=== PATIENT | female | born 1930 | race Caucasian/White ===

== ENCOUNTER 2017-01-15 21:02 | Inpatient (IN) | payer BC, MEDICARE ==
[~2017-01-15] VITALS: Ht 162.6 cm; Wt 72.6 kg
[2017-01-15 21:10] VITALS: BP 102/66
--- NOTE | 2017-01-15 21:19 | Emergency Room Report ---
History of Present Illness General Chief Complaint: Abnormal Labs Source: Patient, EMS Present Illness HPI Patient is an 86-year-old female who presented after having increased altered mental status. Patient had prior history of type 2 diabetes. She had been taking Januvia as well as another oral hypoglycemic. The patient was noted to have a blood sugar in the 40s by EMS. She was given some D50 with some improvement in her mental status. Per the patient's she had recently had shoulder surgery on her left shoulder. She had not been needing well. Allergies: Coded Allergies: No Known Allergies (Unverified , 01/15/17) Patient History Now: No Reviewed Nursing Documentation: PMH: Agreed, PSxH: Agreed Nursing Documentation-PMH Past Medical History: No History, Except For Hx Diabetes: Yes Review of Systems All Other Systems: negative except mentioned in HPI Physical Exam Vital Signs Date Time Temp Pulse Resp B/P Pulse Ox O2 Delivery O2 Flow Rate FiO2 01/15/17 21:00 100 21 108/68 97 Room Air Sp02 EP Interpretation: reviewed, normal General Appearance: normal inspection, well appearing, no apparent distress, alert, GCS 15 Head: atraumatic ENT: normal ENT inspection, hearing grossly normal, normal voice Neck: normal inspection, full range of motion, supple, no bony tend Respiratory: normal inspection, lungs clear, normal breath sounds, no respiratory distress, no retraction, no wheezing Cardiovascular #1: regular rate, rhythm, no edema Gastrointestinal: normal inspection, normal bowel sounds, non tender, soft, no guarding, no hernia Genitourinary: no CVA tenderness Musculoskeletal: normal inspection, back normal, normal range of motion Neurologic: normal inspection, alert, oriented x3, responsive, 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, speech normal Psychiatric: normal inspection, judgement/insight normal, mood/affect normal Skin: normal inspection, normal color, no rash Medical Decision Making Diagnostic Impression: Primary Impression: Hypoglycemia Additional Impression: S/P shoulder surgery ER Course Patient presented for altered mental status.Differential diagnosis included but was not limited to ischemic stroke, subarachnoid hemorrhage, hypoglycemia, spinal cord injury, neurodegenerative disorder, urinary tract infection, hypoxemia.Because of complexity of patient's case laboratory testing and imaging studies were ordered. The patient was noted to have evidence of hypoglycemia which is probably due to dietary indiscretion. Patient's surgical wounds appear not to be infected. Patient was noted to have a blood sugar greater than 180. The patient was given by mouth orange juice.The patient was noted to have hypoglycemia and laboratory testing showed evidence of hyperkalemia. Patient noted to have some renal insufficiency which per her primary care physician is worse than baseline. The patient was reportedly had a creatinine approximately 1.6. The patient noted be taking long-acting oral hypoglycemics. Dr. Acevedo was contacted for inpatient management. Labs Test 01/15/17 21:11 01/15/17 22:02 White Blood Count 11.7 K/UL (4.8-10.8) Red Blood Count 3.24 M/UL (4.20-5.40) Hemoglobin 9.3 G/DL (12.0-16.0) Hematocrit 29.4 % (37.0-47.0) Mean Corpuscular Volume 91 FL (80-99) Mean Corpuscular Hemoglobin 28.7 PG (27.0-31.0) Mean Corpuscular Hemoglobin Concent 31.7 G/DL (32.0-36.0) Red Cell Distribution Width 14.6 % (11.6-14.8) Platelet Count 357 K/UL (150-450) Mean Platelet Volume 5.5 FL (6.5-10.1) Neutrophils (%) (Auto) 85.5 % (45.0-75.0) Lymphocytes (%) (Auto) 8.6 % (20.0-45.0) Monocytes (%) (Auto) 4.9 % (1.0-10.0) Eosinophils (%) (Auto) 0.5 % (0.0-3.0) Basophils (%) (Auto) 0.5 % (0.0-2.0) Sodium Level 138 mEQ/L (135-145) Potassium Level 7.0 mEQ/L (3.4-4.9) Chloride Level 103 mEQ/L (98-107) Carbon Dioxide Level 16 mEQ/L (20-30) Anion Gap 19 (5-15) Blood Urea Nitrogen 65 mg/dL (7-23) Creatinine 3.7 mg/dL (0.5-0.9) Estimat Glomerular Filtration Rate mL/min (>60) Glucose Level 175 mg/dL (74-106) Lactic Acid Level 0.90 mmol/L (0.66-2.22) Calcium Level 9.1 mg/dL (8.6-10.2) Total Bilirubin 0.3 mg/dL (0.0-1.2) Aspartate Amino Transf (AST/SGOT) 36 U/L (5-40) Alanine Aminotransferase (ALT/SGPT) 48 U/L (3-33) Alkaline Phosphatase 69 U/L (35-104) Total Creatine Kinase 75 U/L (26-140) Creatine Kinase MB 3.2 ng/mL (< 3.8) Creatine Kinase MB Relative Index 4.2 Troponin I < 0.30 ng/mL (<=0.30) Total Protein 6.9 g/dL (6.6-8.7) Albumin 4.0 g/dL (3.5-5.2) Globulin 2.9 g/dL Albumin/Globulin Ratio 1.3 (1.0-2.7) Urine Color Pale yellow Urine Appearance Clear Urine pH 5 (4.5-8.0) Urine Specific [place] 1.015 (1.005-1.035) Urine Protein 1+ (NEGATIVE) Urine Glucose (UA) Negative (NEGATIVE) Urine Ketones Negative (NEGATIVE) Urine Occult Blood Negative (NEGATIVE) Urine Nitrite Negative (NEGATIVE) Urine Bilirubin Negative (NEGATIVE) Urine Urobilinogen Normal MG/DL (0.0-1.0) Urine Leukocyte Esterase 2+ (NEGATIVE) Urine RBC 0-2 /HPF (0 - 2) Urine WBC 5-10 /HPF (0 - 2) Urine Squamous Epithelial Cells Few /LPF (NONE/OCC) Urine Bacteria Few /HPF (NONE) EKG Diagnostic Results Rate: normal Rhythm: NSR ST Segments: no acute changes Chest X-Ray Diagnostic Results EP Interpretation: Yes Findings: no consolidation, no effusion, no pneumothorax, no acute cardiopulmonary disease Number of Views: 1 Last Vital Signs Date Time Temp Pulse Resp B/P Pulse Ox O2 Delivery O2 Flow Rate FiO2 01/15/17 21:00 100 21 108/68 97 Room Air Status: unchanged Disposition: ADMITTED INPATIENT Condition: Serious Saman Wei Jan 15, 2017 21:19
[2017-01-15] MEDS: D5 1/2NS 1,000 ML IV SCH ×2 (21:42→21:44)
[2017-01-15 21:46] LABS: MEAN CORPUSCULAR HEMOGLOBIN 28.7 PG (27.0-31.0); MEAN CORPUSCULAR HGB CONC 31.7 G/DL (32.0-36.0); MEAN CORPUSCULAR VOLUME 91 FL (80-99); MEAN PLATELET VOLUME 5.5 FL (6.5-10.1); PLATELET COUNT 357 K/UL (150-450); RED BLOOD COUNT 3.24 M/UL (4.20-5.40); RED CELL DISTRIBUTION WIDTH 14.6 % (11.6-14.8); WHITE BLOOD COUNT 11.7 K/UL (4.8-10.8)
[2017-01-15 21:50] LABS: BASOPHILS % (AUTO) 0.5 % (0.0-2.0); EOSINOPHILS % (AUTO) 0.5 % (0.0-3.0); LYMPHOCYTES % (AUTO) 8.6 % (20.0-45.0); MONOCYTES % (AUTO) 4.9 % (1.0-10.0); NEUTROPHILS % (AUTO) 85.5 % (45.0-75.0)
[2017-01-15 21:57] LABS: ALANINE AMINOTRANSFERASE 48 U/L (3-33); ALBUMIN/GLOBULIN RATIO 1.3 (1.0-2.7); ANION GAP 19 (5-15); ASPARTATE AMINO TRANSFERASE 36 U/L (5-40); CALCIUM 9.1 mg/dL (8.6-10.2); CARBON DIOXIDE 16 mEQ/L (20-30); CHLORIDE 103 mEQ/L (98-107); CREATININE 3.7 mg/dL (0.5-0.9); HEMOLYSIS 5; SODIUM 138 mEQ/L (135-145); TOTAL PROTEIN 6.9 g/dL (6.6-8.7)
[2017-01-15 21:58] LABS: TROPONIN I < 0.30 ng/mL (<=0.30)
[2017-01-15] MEDS ORDERED: cefTRIAXone 1 GM in NS 55 ML IVPB ONE (22:00)
[2017-01-15 22:15] LABS: APPEARANCE,URINE CLEAR; KETONES,URINE NEGATIVE (NEGATIVE); LEUKOCYTE ESTERASE ,URINE 2+ (NEGATIVE); NITRITE,URINE NEGATIVE (NEGATIVE); PH,URINE 5 (4.5-8.0); PROTEIN,URINE 1+ (NEGATIVE); UROBILINOGEN,URINE NORMAL MG/DL (0.0-1.0)
[2017-01-15] MEDS ORDERED: Calcium Gluconate 10% 1 GM in NS 110 ML IVPB ONE (22:15)
[2017-01-15 22:17] LABS: CKMB 3.2 ng/mL (< 3.8)
[2017-01-15] MEDS ORDERED: Calcium Gluconate 1gm/10ml vial ONE (22:22)
[2017-01-15 22:29] LABS: BACTERIA,URINE FEW /HPF; RBC,URINE 0-2 /HPF (0 - 2); SQUAMOUS EPITHELIAL CELL,UR FEW /LPF (NONE/OCC)
[2017-01-15] MEDS ORDERED: Sodium Polystyrene Sulfonate 15gm Powder ORAL ONE (22:30)
[2017-01-15] MEDS ORDERED: Sodium Bicarbonate 8.4% 50ml Carp IV ONE (22:30)
[2017-01-15] MEDS ORDERED: DuoNeb 0.5-3(2.5)mg/3ml neb HHN PRN (23:15)
[2017-01-15] MEDS ORDERED: Miralax 17gm pkt ORAL PRN (23:15)
[2017-01-15] MEDS ORDERED: Morphine Sulfate 2mg/ml Inj IVP PRN (23:15)
[2017-01-15] MEDS ORDERED: Zolpidem 5mg tab ORAL PRN (23:15)
[2017-01-15] MEDS ORDERED: Mylanta II UD 30ml ORAL PRN (23:15)
[2017-01-15 23:18] VITALS: BP 108/45
[2017-01-16] VITALS (7 sets, daily range): BP systolic 104–137; BP diastolic 50–81
[2017-01-16] MEDS ORDERED: LIPITOR80 MG ORAL (00:10)
[2017-01-16] MEDS ORDERED: NORVASC5 MG ORAL (00:10)
[2017-01-16] MEDS ORDERED: LISINOPRIL5 MG ORAL (00:10)
[2017-01-16] MEDS ORDERED: JANUVIA50 MG ORAL (00:10)
[2017-01-16] MEDS ORDERED: IRON159 MG PO (00:10)
[2017-01-16] MEDS ORDERED: MULTI VITAMIN1 EACH ORAL (00:10)
[2017-01-16] MEDS ORDERED: REPAGLINIDE1 MG PO (00:10)
[2017-01-16] MEDS ORDERED: LEXAPRO5 MG ORAL (00:10)
[2017-01-16] MEDS ORDERED: NAMENDA10 MG ORAL (00:10)
[2017-01-16] MEDS ORDERED: TYLENOL650 MG/20. ORAL (00:10)
[2017-01-16] MEDS ORDERED: GABAPENTIN300 MG ORAL (00:10)
[2017-01-16] MEDS ORDERED: TYLENOL EXTRA500 MG ORAL (03:34)
[2017-01-16] MEDS ORDERED: FERROUS SULFAT325 MG ORAL (03:34)
[2017-01-16] MEDS ORDERED: JANUVIA100 MG ORAL (03:34)
[2017-01-16 05:58] LABS: BASOPHILS % (AUTO) 0.8 % (0.0-2.0); EOSINOPHILS % (AUTO) 1.2 % (0.0-3.0); LYMPHOCYTES % (AUTO) 20.9 % (20.0-45.0); MEAN CORPUSCULAR HEMOGLOBIN 28.8 PG (27.0-31.0); MEAN CORPUSCULAR HGB CONC 32.1 G/DL (32.0-36.0); MEAN CORPUSCULAR VOLUME 90 FL (80-99); MEAN PLATELET VOLUME 5.8 FL (6.5-10.1); MONOCYTES % (AUTO) 6.6 % (1.0-10.0); NEUTROPHILS % (AUTO) 70.5 % (45.0-75.0); PLATELET COUNT 321 K/UL (150-450); WHITE BLOOD COUNT 9.7 K/UL (4.8-10.8)
[2017-01-16 06:08] LABS: ALANINE AMINOTRANSFERASE 36 U/L (3-33); ALBUMIN/GLOBULIN RATIO 0.9 (1.0-2.7); ANION GAP 18 (5-15); ASPARTATE AMINO TRANSFERASE 25 U/L (5-40); CALCIUM 8.4 mg/dL (8.6-10.2); CARBON DIOXIDE 16 mEQ/L (20-30); CHLORIDE 103 mEQ/L (98-107); CHOLESTEROL 104 mg/dL (< 200); CHOLESTEROL/HDL RATIO 2.1 (3.3-4.4); CREATININE 3.1 mg/dL (0.5-0.9); HEMOLYSIS 1; LDL CHOLESTEROL (CALC.) 43 mg/dL (60-99); SODIUM 137 mEQ/L (135-145); TOTAL PROTEIN 6.1 g/dL (6.6-8.7)
[2017-01-16 06:21] LABS: THYROID STIMULATING HORMONE 0.345 uIU/mL (0.300-4.500)
[2017-01-16] MEDS: NovoLOG Insulin Flexpen SUBQ SCH ×4 (06:53→21:02)
[2017-01-16] MEDS: Sodium Polystyrene Sulfonate 15gm Powder ORAL SCH (08:25)
[2017-01-16] MEDS: Heparin 5000 units/ml inj SUBQ SCH ×2 (08:27→21:03)
[2017-01-16] MEDS ORDERED: Pneumococcal Vaccine 25mcg/0.5ml IM ONE (09:00)
--- NOTE | 2017-01-16 09:52 | Diagnostic Imaging Report ---
Clinical history: Acute shortness of breath. Technique: Portable AP chest radiograph was obtained. Comparison: None Findings: Mild scattered reticular and interstitial opacities may reflect mild interstitial edema or scattered changes of chronic lung disease. No focal consolidation is identified. There is no pneumonia or pulmonary edema. There is no pleural effusion or pneumothorax. The cardiac and mediastinal silhouettes are normal in appearance. The bony thorax is unremarkable. Impression: Suspected mild interstitial edema or scattered changes of chronic lung disease.
--- NOTE | 2017-01-16 10:20 | History and Physical ---
History of Present Illness General Date patient seen: Jan 16, 2018 Time patient seen: 10:00 Reason for Hospitalization: Abnormal Labs Present Illness HPI 86-year-old female presented after having altered mental status. Patient with history of type 2 diabetes. She had been taking Januvia as well as another oral hypoglycemic medications. By EMS blood sugar in the 40s by EMS. patient was given D50 with some improvement in mental status. recent shoulder surgery and was not eating well as per denies fever, chills no blackouts, no falls, no dizziness no chest pain, no SOB, no palpitations no trauma, injury Workup in ED revealed BS 175 mild leukocytosis-11.7 anemia -9.3/29.4 hyperkalemia K-7.0 acute renal failure with BUN/creat-65/3.7 CXR with mild interstitial edema ECG - SR CXR no acute changes patient was admitted to tele floor for further management PMH: HTN, hyperlipidemia, DM, arrhythmia, s/p R hip surgery, s/p L shoulder surgery Allergies: Coded Allergies: No Known Allergies (Unverified , 01/15/17) Medication History Scheduled Amlodipine Besylate (Norvasc), 5 MG ORAL DAILY, (Reported) Atorvastatin (Lipitor), 40 MG ORAL DAILY, (Reported) Escitalopram Oxalate (Lexapro), 20 MG ORAL DAILY, (Reported) Ferrous Sulfate* (Ferrous Sulfate*), 325 MG ORAL DAILY, (Reported) Gabapentin* (Gabapentin*), 200 MG ORAL BEDTIME, (Reported) Lisinopril (Lisinopril*), 10 MG ORAL DAILY, (Reported) Memantine Hcl* (Namenda*), 28 MG ORAL DAILY, (Reported) Multivitamin (Multi Vitamin Daily), 1 TAB ORAL DAILY, (Reported) Repaglinide (Repaglinide), 1 MG PO BID, (Reported) Sitagliptin (Januvia), 100 MG ORAL DAILY, (Reported) Scheduled PRN Acetaminophen* (Tylenol Extra Strength*), 500 MG ORAL Q8H PRN for For Pain, ( Reported) Discontinued Medications Acetaminophen (Acetaminophen), Unknown Dose ORAL Q6H PRN for Prn Headache/Temp > 101, (Reported) Discontinued Reason: Medication dose changed Ferrous Sulfate, Dried (Iron), 65 MG PO, (Reported) Discontinued Reason: Medication dose changed Sitagliptin (Januvia), 50 MG ORAL DAILY, (Reported) Discontinued Reason: Medication dose changed Patient History Healthcare decision maker Resuscitation status Full Code Advanced Directive on File Review of Systems Constitutional: Reports: malaise, weakness Eye: Reports: no symptoms ENT: Reports: no symptoms Respiratory: Reports: no symptoms Cardiovascular: Reports: other - HTN Gastrointestinal: Reports: constipation Genitourinary: Reports: no symptoms Musculoskeletal: Reports: joint pain, other - R hip surgery, L shoulder surgery Skin: Reports: no symptoms Psychiatric: Reports: other - depression, dementia Neurological: Reports: no symptoms Endocrine: Reports: other - DM, see HPI Hematologic/Lymphatic: Reports: no symptoms Physical Exam General Appearance: alert - responsive, forgetful,elderly female in NAD Lines, tubes and drains: peripheral HEENT: normocephalic, atraumatic, anicteric, mucous membranes moist, PERRL Neck: non-tender, normal alignment, supple Respiratory/Chest: lungs clear, no respiratory distress, no accessory muscle use Cardiovascular/Chest: normal peripheral pulses, no JVD, other - irregualr, tachy-maximiliano Abdomen: normal bowel sounds, non tender, soft Extremities: normal inspection, no calf tenderness, normal capillary refill Skin Exam: warm/dry Neurologic: no motor/sensory deficits, alert - forgetful, responsive Musculoskeletal: atrophy - BLE Last 24 Hour Vital Signs Date Time Temp Pulse Resp B/P Pulse Ox O2 Delivery O2 Flow Rate FiO2 01/16/17 08:00 97.0 46 16 112/50 96 Room Air 01/16/17 04:30 98.2 139 20 137/81 96 Room Air 2.0 01/16/17 04:00 100 01/16/17 02:43 97.0 114 20 114/67 96 Room Air 01/16/17 02:02 97.5 99 15 104/62 96 Room Air 01/16/17 01:45 97.5 99 15 104/62 96 Room Air 01/16/17 00:38 97.5 01/15/17 23:18 97.5 95 19 108/45 100 Room Air 01/15/17 21:10 73 17 102/66 97 Room Air 01/15/17 21:00 100 21 108/68 97 Room Air Intake and Output 01/15/17 01/16/17 19:00 07:00 Intake Total 1350 ml Balance 1350 ml IV Total 1350 ml # Voids 3 Laboratory Tests Test 01/15/17 21:11 01/15/17 22:02 01/16/17 05:30 White Blood Count 11.7 K/UL (4.8-10.8) H 9.7 K/UL (4.8-10.8) Red Blood Count 3.24 M/UL (4.20-5.40) L 2.80 M/UL (4.20-5.40) L Hemoglobin 9.3 G/DL (12.0-16.0) L 8.1 G/DL (12.0-16.0) L Hematocrit 29.4 % (37.0-47.0) L 25.1 % (37.0-47.0) L Mean Corpuscular Volume 91 FL (80-99) 90 FL (80-99) Mean Corpuscular Hemoglobin 28.7 PG (27.0-31.0) 28.8 PG (27.0-31.0) Mean Corpuscular Hemoglobin Concent 31.7 G/DL (32.0-36.0) L 32.1 G/DL (32.0-36.0) Red Cell Distribution Width 14.6 % (11.6-14.8) 14.0 % (11.6-14.8) Platelet Count 357 K/UL (150-450) 321 K/UL (150-450) Mean Platelet Volume 5.5 FL (6.5-10.1) L 5.8 FL (6.5-10.1) L Neutrophils (%) (Auto) 85.5 % (45.0-75.0) H 70.5 % (45.0-75.0) Lymphocytes (%) (Auto) 8.6 % (20.0-45.0) L 20.9 % (20.0-45.0) Monocytes (%) (Auto) 4.9 % (1.0-10.0) 6.6 % (1.0-10.0) Eosinophils (%) (Auto) 0.5 % (0.0-3.0) 1.2 % (0.0-3.0) Basophils (%) (Auto) 0.5 % (0.0-2.0) 0.8 % (0.0-2.0) Sodium Level 138 mEQ/L (135-145) 137 mEQ/L (135-145) Potassium Level 7.0 mEQ/L (3.4-4.9) *H 6.0 mEQ/L (3.4-4.9) *H Chloride Level 103 mEQ/L (98-107) 103 mEQ/L (98-107) Carbon Dioxide Level 16 mEQ/L (20-30) L 16 mEQ/L (20-30) L Anion Gap 19 (5-15) H 18 (5-15) H Blood Urea Nitrogen 65 mg/dL (7-23) H 57 mg/dL (7-23) H Creatinine 3.7 mg/dL (0.5-0.9) H 3.1 mg/dL (0.5-0.9) H Estimat Glomerular Filtration Rate mL/min (>60) mL/min (>60) Glucose Level 175 mg/dL (74-106) H 184 mg/dL (74-106) H Lactic Acid Level 0.90 mmol/L (0.66-2.22) Calcium Level 9.1 mg/dL (8.6-10.2) 8.4 mg/dL (8.6-10.2) L Total Bilirubin 0.3 mg/dL (0.0-1.2) 0.3 mg/dL (0.0-1.2) Aspartate Amino Transf (AST/SGOT) 36 U/L (5-40) 25 U/L (5-40) Alanine Aminotransferase (ALT/SGPT) 48 U/L (3-33) H 36 U/L (3-33) H Alkaline Phosphatase 69 U/L (35-104) 58 U/L (35-104) Total Creatine Kinase 75 U/L (26-140) Creatine Kinase MB 3.2 ng/mL (< 3.8) Creatine Kinase MB Relative Index 4.2 Troponin I < 0.30 ng/mL (<=0.30) Total Protein 6.9 g/dL (6.6-8.7) 6.1 g/dL (6.6-8.7) L Albumin 4.0 g/dL (3.5-5.2) 3.0 g/dL (3.5-5.2) L Globulin 2.9 g/dL 3.1 g/dL Albumin/Globulin Ratio 1.3 (1.0-2.7) 0.9 (1.0-2.7) L Urine Color Pale yellow Urine Appearance Clear Urine pH 5 (4.5-8.0) Urine Specific [place] 1.015 (1.005-1.035) Urine Protein 1+ (NEGATIVE) H Urine Glucose (UA) Negative (NEGATIVE) Urine Ketones Negative (NEGATIVE) Urine Occult Blood Negative (NEGATIVE) Urine Nitrite Negative (NEGATIVE) Urine Bilirubin Negative (NEGATIVE) Urine Urobilinogen Normal MG/DL (0.0-1.0) Urine Leukocyte Esterase 2+ (NEGATIVE) H Urine RBC 0-2 /HPF (0 - 2) Urine WBC 5-10 /HPF (0 - 2) H Urine Squamous Epithelial Cells Few /LPF (NONE/OCC) Urine Bacteria Few /HPF (NONE) Hemoglobin A1c 6.0 % (< 6.0) Triglycerides Level 57 mg/dL (< 150) Cholesterol Level 104 mg/dL (< 200) LDL Cholesterol 43 mg/dL (60-99) L HDL Cholesterol 50 mg/dL (> 60) Cholesterol/HDL Ratio 2.1 (3.3-4.4) L Thyroid Stimulating Hormone (TSH) 0.345 uIU/mL (0.300-4.500) Height (Feet): 5 Height (Inches): 4.00 Weight (Pounds): 160 Medications Current Medications Medications (Trade) Dose Ordered Sig/Leydi Route PRN Reason Start Time Stop Time Status Last Admin Dose Admin Acetaminophen (Tylenol) 650 mg Q4H PRN ORAL fever 01/15/17 23:15 02/14/17 23:14 Al Hydroxide/Mg Hydroxide (Mylanta II) 30 ml Q6H PRN ORAL dyspepsia 01/15/17 23:15 02/14/17 23:14 Albuterol/ Ipratropium (DuoNeb 0.5-3(2.5)mg/3ml) 3 ml Q6HRT PRN HHN dyspnea 01/15/17 23:15 01/20/17 23:14 Clonidine HCl (Catapres) 0.1 mg Q4H PRN ORAL For High Blood Pressure 01/15/17 23:15 02/14/17 23:14 Dextrose (Dextrose 50%) STAT PRN IV Hypoglycemia 01/15/17 23:15 02/14/17 23:14 Heparin Sodium (Porcine) (Heparin 5000 units/ml) 5,000 units EVERY 12 HOURS SUBQ 01/16/17 09:00 02/15/17 08:59 01/16/17 08:27 Insulin Aspart (NovoLOG) BEFORE MEALS AND HS SUBQ 01/16/17 06:30 02/15/17 06:29 01/16/17 06:53 Morphine Sulfate (Morphine Sulfate) 1 mg EVERY 4 HOURS PRN IVP For Pain 01/15/17 23:15 01/22/17 23:14 Ondansetron HCl (Zofran) 4 mg Q6H PRN IVP Nausea & Vomiting 01/15/17 23:15 02/14/17 23:14 Polyethylene Glycol (Miralax) 17 gm HSPRN PRN ORAL Constipation 01/15/17 23:15 02/14/17 23:14 01/16/17 08:25 Sodium Polystyrene Sulfonate 45 gm 45 gm DAILY ORAL 01/16/17 09:00 01/19/17 08:59 01/16/17 08:25 Sodium Chloride (Sodium Chloride 1000ml bag) 1,000 ml @ 100 mls/hr Q10H IV 01/16/17 10:00 02/15/17 09:59 01/16/17 10:09 Zolpidem Tartrate (Ambien) 5 mg HSPRN PRN ORAL Insomnia 01/15/17 23:15 02/14/17 23:14 Assessment/Plan Assessment/Plan ASSESSMENT acute metabolic encephalopathy liekly 2 to hypoglycemia -resolved episode of hypoglycemia DM acute renal failreu, possibly on chronic ( ? diabetic nephropathy) hyperkalemia anemia hx of HTN dementia tachybrady syndrome PLAN OF CARE tele nephro consult IVF monitor renal parameters, lytes ARF possibly precipitated by medications as well as dehydration check renal US continue Kayexalate need to be on tele until K stable, no peaked T wave on tele strip avoid nephrotoxic BS management with SS of insulin check HgA1c MRI brain anemia workup O2 HHN prn PT/OT fall precautions DVT prophylaxis pain management monitor BP , currently stable, no need for antiHTN, cardio eval - per PMD discretion case discussed and evaluated by supervising physician Kirk Ayala),Criss BADILLO Jan 16, 2017 10:19
--- NOTE | 2017-01-16 12:38 | History & Physical ---
History and Physical History & Physicial Dictated for Int Med-Dr Acevedo no. [id number] BILLY GALEAS Jan 16, 2017 12:38
--- NOTE | 2017-01-16 13:08 | Consultation ---
Consult Note Consult Note asked to eval for renal failure and hyperKalemia Patient is an 86-year-old female who presented after having increased altered mental status. Patient had prior history of type 2 diabetes. She had been taking Januvia as well as another oral hypoglycemic. The patient was noted to have a blood sugar in the 40s by EMS. She was given some D50 with some improvement in her mental status. Per the patient's she had recently had shoulder surgery on her left shoulder. She had not been needing well. Patient examined- interviewed- Data reviewed- Discussed with RN . Assessment/Plan status: Renal Failure ? Acute ? Underlying chronic Diabetic Nephropathy- Anemia High Cholestrol Depression / Dementia Plan: Hydrate- Khan- urine studies- Avoid Nephrotoxics- mobnitor BS and BP Kidney FLORENCIA 2D Echo Kayexelate for high K CHARLEY SARKAR Jan 16, 2017 13:08
[2017-01-16 16:22] LABS: ANION GAP 18 (5-15); CARBON DIOXIDE 17 mEQ/L (20-30); CHLORIDE 107 mEQ/L (98-107); CREATININE 2.9 mg/dL (0.5-0.9); HEMOLYSIS 2; POTASSIUM 5.7 mEQ/L (3.4-4.9); SODIUM 142 mEQ/L (135-145)
--- NOTE | 2017-01-16 19:39 | History and Physical Report ---
DATE OF ADMISSION: 01/15/2017 CHIEF COMPLAINT: This is an 86-year-old white female, presents with complaint of vertigo and altered mental status. HISTORY OF PRESENT ILLNESS: The patient lives at home with her . The patient is somewhat confused. Much of the history and physical is obtained from the patient's and the patient's chart. The patient states she fainted early this morning. The patient's became concerned and called 911. The patient's blood sugar was found to be 48 by EMS. The patient was transported to [place] emergency room. The patient was admitted for hypoglycemia, vertigo, and altered mental status. PAST MEDICAL HISTORY: Significant for, 1. Type 2 diabetes. 2. Hypertension. 3. Alzheimer's dementia. 4. Major depression. PAST SURGICAL HISTORY: Significant for recent left shoulder surgery. CURRENT MEDICATIONS: 1. Norvasc 5 mg one tablet p.o. daily. 2. Atorvastatin 80 mg one tablet p.o. daily. 3. Lexapro 20 mg one tablet p.o. daily. 4. Iron sulfate 325 mg one tablet p.o. daily. 5. Gabapentin 300 mg one tablet p.o. at nightly. 6. Lisinopril 10 mg one tablet p.o. daily. 7. Namenda 28 mg p.o. daily. 8. Multivitamin one tablet p.o. daily. 9. Repaglinide 1 mg one tablet p.o. twice daily. 10. Januvia 100 mg one tablet p.o. daily. ALLERGIES: No known drug allergies. SOCIAL HISTORY: The patient is and lives with her . The patient denies tobacco or alcohol use. REVIEW OF SYSTEMS: Constitutional: The patient denies weight loss or weight gain. The patient denies fevers or chills. HEENT: The patient denies ear or throat pain. Cardiovascular: The patient denies palpitations or chest pain. Chest: The patient denies wheezes or shortness of breath. Abdomen: The patient denies nausea, vomiting, diarrhea, or constipation Genitourinary: The patient denies dysuria or increased frequency of urination. Neuromuscular: The patient complains of vertigo as above. The patient denies seizures or generalized weakness. PHYSICAL EXAMINATION: VITAL SIGNS: Temperature 97.5 degrees, respirations 15, pulse 99, AND blood pressure 104/62. GENERAL: The patient is well-developed and well-nourished white female, in no apparent distress. HEENT: Eyes, pupils are equal and responsive to light and accommodation. Extraocular movements are intact. NECK: Supple without lymphadenopathy. CHEST: Lungs are clear to auscultation bilaterally without wheezes or rales. CARDIOVASCULAR: Regular rhythm and rate. S1 and S2 normal without murmurs, rubs, or gallops. ABDOMEN: Soft, nontender, and nondistended. Positive bowel sounds. No evidence of hepatosplenomegaly. Currently, no rebound or guarding. EXTREMITIES: Negative for clubbing, cyanosis, or edema. RECTAL: Refused. GENITAL: Refused. NEUROLOGIC: Cranial nerves II through XII are grossly intact without focal deficits. Motor strength is 5/5 bilaterally. Deep tendon reflexes are 2+ plantar. LABORATORY STUDIES: WBC 11.7, hemoglobin 9.3, hematocrit 29.4, and platelets 357,000. Sodium 138, potassium elevated at 7.0, chloride 103, CO2 16, BUN 65, creatinine 3.7, and glucose 175. Troponin less than 0.3. Chest x-ray showed mild interstitial edema. ASSESSMENT: This is an 86-year-old white female, 1. Altered mental status. 2. Vertigo. 3. Hypoglycemia. 4. Renal failure. 5. Diabetes type 2. 6. Hypertension. 7. Alzheimer's dementia. 8. Major depression. 9. Hypercholesterolemia. TREATMENT: 1. Altered mental status/vertigo is probably secondary to hypoglycemia. nA MRI of the brain is pending. Carotid duplex and Dopplers are pending. Serial troponin levels to be run. 2. Renal failure. A Nephrology consultation was obtained with Dr. Avila. This may be prerenal versus diabetic nephropathy. 3. Diabetes type 2. Continue Januvia and repaglinide as above. 4. Hypertension. Continue Norvasc and lisinopril as above. 5. Alzheimer's dementia. Continue Namenda as above. 6. Major depression. Continue Lexapro as above. 7. Hypercholesterolemia. Continue Lipitor as above. Stone Lovell M.D. DR: Aidan JOB#: [id number] CC:
[2017-01-17] VITALS: BP 130/60
[2017-01-17 04:00] VITALS: BP 129/82
[2017-01-17 06:07] LABS: MEAN CORPUSCULAR HEMOGLOBIN 28.7 PG (27.0-31.0); MEAN CORPUSCULAR HGB CONC 32.1 G/DL (32.0-36.0); MEAN CORPUSCULAR VOLUME 90 FL (80-99); MEAN PLATELET VOLUME 5.9 FL (6.5-10.1); PLATELET COUNT 302 K/UL (150-450); RED CELL DISTRIBUTION WIDTH 14.1 % (11.6-14.8); WHITE BLOOD COUNT 10.2 K/UL (4.8-10.8)
[2017-01-17] MEDS: NovoLOG Insulin Flexpen SUBQ SCH ×4 (06:30→21:48)
[2017-01-17 06:56] LABS: TROPONIN I < 0.30 ng/mL (<=0.30)
[2017-01-17 07:07] LABS: ALANINE AMINOTRANSFERASE 30 U/L (3-33); ALBUMIN/GLOBULIN RATIO 1.2 (1.0-2.7); ANION GAP 19 (5-15); ASPARTATE AMINO TRANSFERASE 22 U/L (5-40); CALCIUM 8.1 mg/dL (8.6-10.2); CARBON DIOXIDE 16 mEQ/L (20-30); CHLORIDE 110 mEQ/L (98-107); CHOLESTEROL 103 mg/dL (< 200); CHOLESTEROL/HDL RATIO 2.1 (3.3-4.4); CREATININE 2.8 mg/dL (0.5-0.9); CRP QUANT 0.6 mg/dL (< 0.5); HEMOLYSIS 7; LDL CHOLESTEROL (CALC.) 34 mg/dL (60-99); MAGNESIUM 1.8 mg/dL (1.7-2.5); PHOSPHORUS 3.9 mg/dL (2.5-4.8); SODIUM 145 mEQ/L (135-145); TOTAL PROTEIN 5.7 g/dL (6.6-8.7); URIC ACID 6.4 mg/dL (3.0-7.5)
[2017-01-17 07:33] LABS: THYROID STIMULATING HORMONE 0.876 uIU/mL (0.300-4.500)
[2017-01-17 08:15] VITALS: BP 130/81
[2017-01-17] MEDS: Sodium Polystyrene Sulfonate 15gm Powder ORAL SCH (09:06)
[2017-01-17] MEDS: Heparin 5000 units/ml inj SUBQ SCH ×2 (09:06→21:47)
--- NOTE | 2017-01-17 09:47 | Cardiology Report ---
APPROVED REPORT EXAM: Two-dimensional and M-mode echocardiogram with Doppler and color Doppler. INDICATION Congestive Heart Failure M-Mode DIMENSIONS IVSd0.6 (0.7-1.1cm)Left Atrium (MM)3.7 (1.6-4.0cm) LVDd5.2 (3.5-5.6cm)Aortic Root2.3 (2.0-3.7cm) PWd0.8 (0.7-1.1cm)Aortic Cusp Exc.1.5 (1.5-2.0cm) LVDs3.3 (2.5-4.0cm) PWs0.9 cm Normal left ventricular chamber size, systolic function and wall motion. Left ventricular ejection fraction estimated to be 60-65 %. No evidence of left ventricular hypertrophy. No evidence of pericardial fat or effusion. Right cardiac chamber sizes are within normal limits. Mild left atrial enlargement by 2D. Focal aortic valve sclerosis with adequate cusp excursion Normal mitral valve leaflets with normal excursion. Mild mitral annulus and aortic root calcification. Pulmonic valve not well visualized. Normal tricuspid valve structure. IVC is normal in size with physiologic collapse. A color flow and spectral Doppler study was performed and revealed: No aortic regurgitation. Moderate mitral regurgitation. Left ventricular diastolic dysfunction not obtainable due to arrhythmia. Moderate tricuspid regurgitation. Tricuspid systolic velocities suggests peak right ventricular systolic pressure of 39 mmHg Consistent with moderate pulmonary hypertension.
--- NOTE | 2017-01-17 09:57 | Internal Med Progress Note ---
Subjective Date of Service: Jan 17, 2017 Physician Name Billy Galeas Attending Physician Dk Acevedo MD Current Medications Medications (Trade) Dose Ordered Sig/Leydi Route PRN Reason Start Time Stop Time Status Last Admin Dose Admin Acetaminophen (Tylenol) 650 mg Q4H PRN ORAL fever 01/15/17 23:15 02/14/17 23:14 Albuterol/ Ipratropium (DuoNeb 0.5-3(2.5)mg/3ml) 3 ml Q6HRT PRN HHN dyspnea 01/15/17 23:15 01/20/17 23:14 Atorvastatin Calcium (Lipitor) 40 mg QHS ORAL 01/16/17 21:00 02/15/17 20:59 01/16/17 20:58 Clonidine HCl (Catapres) 0.1 mg Q4H PRN ORAL For High Blood Pressure 01/15/17 23:15 02/14/17 23:14 Dextrose (Dextrose 50%) STAT PRN IV Hypoglycemia 01/15/17 23:15 02/14/17 23:14 Heparin Sodium (Porcine) (Heparin 5000 units/ml) 5,000 units EVERY 12 HOURS SUBQ 01/16/17 09:00 02/15/17 08:59 01/17/17 09:06 Insulin Aspart (NovoLOG) BEFORE MEALS AND HS SUBQ 01/16/17 06:30 02/15/17 06:29 01/16/17 21:02 Morphine Sulfate (Morphine Sulfate) 1 mg EVERY 4 HOURS PRN IVP For Pain 01/15/17 23:15 01/22/17 23:14 Ondansetron HCl (Zofran) 4 mg Q6H PRN IVP Nausea & Vomiting 01/15/17 23:15 02/14/17 23:14 Polyethylene Glycol (Miralax) 17 gm HSPRN PRN ORAL Constipation 01/15/17 23:15 02/14/17 23:14 01/16/17 08:25 Sodium Polystyrene Sulfonate 45 gm 45 gm DAILY ORAL 01/16/17 09:00 01/19/17 08:59 01/17/17 09:06 Sodium Chloride (Sodium Chloride 1000ml bag) 1,000 ml @ 100 mls/hr Q10H IV 01/16/17 10:00 02/15/17 09:59 01/17/17 06:02 Zolpidem Tartrate (Ambien) 5 mg HSPRN PRN ORAL Insomnia 01/15/17 23:15 02/14/17 23:14 Allergies: Coded Allergies: No Known Allergies (Unverified , 01/15/17) ROS Limited/Unobtainable: Yes Subjective 86 YO F admitted with vertigo and altered mental status. Found to be Hypoglycemic. Cover for Int Clement-Dr Acevedo. Objective Last Vital Signs Date Time Temp Pulse Resp B/P Pulse Ox O2 Delivery O2 Flow Rate FiO2 01/17/17 08:15 96.4 84 18 130/81 96 Room Air 01/16/17 20:21 21 01/16/17 04:30 2.0 General Appearance: WD/WN, no apparent distress, alert EENT: PERRL/EOMI, normal ENT inspection, TMs normal Neck: non-tender, normal alignment, supple, normal inspection Cardiovascular: regular rhythm, no gallop/murmur, no JVD Respiratory/Chest: chest wall non-tender, lungs clear, normal breath sounds, no respiratory distress, no accessory muscle use Abdomen: normal bowel sounds, non tender, soft, no organomegaly, no mass Extremities: normal range of motion 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, no motor/sensory deficits Skin: normal pigmentation, warm/dry Laboratory Tests Test 01/16/17 15:40 01/16/17 17:20 01/17/17 04:00 01/17/17 04:25 Sodium Level 142 mEQ/L (135-145) 145 mEQ/L (135-145) Potassium Level 5.7 mEQ/L (3.4-4.9) H 5.0 mEQ/L (3.4-4.9) H Chloride Level 107 mEQ/L (98-107) 110 mEQ/L (98-107) H Carbon Dioxide Level 17 mEQ/L (20-30) L 16 mEQ/L (20-30) L Anion Gap 18 (5-15) H 19 (5-15) H Blood Urea Nitrogen 52 mg/dL (7-23) H 48 mg/dL (7-23) H Creatinine 2.9 mg/dL (0.5-0.9) H 2.8 mg/dL (0.5-0.9) H Estimat Glomerular Filtration Rate mL/min (>60) mL/min (>60) Glucose Level 143 mg/dL (74-106) H 108 mg/dL (74-106) H Calcium Level 8.0 mg/dL (8.6-10.2) L 8.1 mg/dL (8.6-10.2) L Urine Random Sodium 103 mmol/L Urine Eosinophils None seen White Blood Count 10.2 K/UL (4.8-10.8) Red Blood Count 2.70 M/UL (4.20-5.40) L Hemoglobin 7.8 G/DL (12.0-16.0) L Hematocrit 24.2 % (37.0-47.0) L Mean Corpuscular Volume 90 FL (80-99) Mean Corpuscular Hemoglobin 28.7 PG (27.0-31.0) Mean Corpuscular Hemoglobin Concent 32.1 G/DL (32.0-36.0) Red Cell Distribution Width 14.1 % (11.6-14.8) Platelet Count 302 K/UL (150-450) Mean Platelet Volume 5.9 FL (6.5-10.1) L Neutrophils (%) (Auto) % (45.0-75.0) Lymphocytes (%) (Auto) % (20.0-45.0) Monocytes (%) (Auto) % (1.0-10.0) Eosinophils (%) (Auto) % (0.0-3.0) Basophils (%) (Auto) % (0.0-2.0) Uric Acid 6.4 mg/dL (3.0-7.5) Phosphorus Level 3.9 mg/dL (2.5-4.8) Magnesium Level 1.8 mg/dL (1.7-2.5) Total Bilirubin 0.4 mg/dL (0.0-1.2) Gamma Glutamyl Transpeptidase 13 U/L (5-36) Aspartate Amino Transf (AST/SGOT) 22 U/L (5-40) Alanine Aminotransferase (ALT/SGPT) 30 U/L (3-33) Alkaline Phosphatase 60 U/L (35-104) Total Creatine Kinase 60 U/L (26-140) Troponin I < 0.30 ng/mL (<=0.30) C-Reactive Protein, Quantitative 0.6 mg/dL (< 0.5) H Pro-B-Type Natriuretic Peptide 4942 pg/mL (0-450) H Total Protein 5.7 g/dL (6.6-8.7) L Albumin 3.2 g/dL (3.5-5.2) L Globulin 2.5 g/dL Albumin/Globulin Ratio 1.2 (1.0-2.7) Triglycerides Level 106 mg/dL (< 150) Cholesterol Level 103 mg/dL (< 200) LDL Cholesterol 34 mg/dL (60-99) L HDL Cholesterol 48 mg/dL (> 60) Cholesterol/HDL Ratio 2.1 (3.3-4.4) L Thyroid Stimulating Hormone (TSH) 0.876 uIU/mL (0.300-4.500) Microbiology Date/Time Source Procedure Growth Status 01/15/17 21:11 Blood Blood Culture - Preliminary NO GROWTH AFTER 24 HOURS Resulted 01/15/17 21:01 Blood Blood Culture - Preliminary NO GROWTH AFTER 24 HOURS Resulted Intake and Output 01/16/17 01/17/17 19:00 07:00 Intake Total 960 ml 1223 ml Output Total 800 ml Balance 960 ml 423 ml Intake Oral 460 ml 120 ml IV Total 500 ml 1103 ml Output Urine Total 800 ml # Voids 3 # Bowel Movements 1 Assessment/Plan Problem List: (1) Vertigo (2) Altered mental status (3) Diabetes mellitus Assessment & Plan: Cont novolog sliding scale. (4) HTN (hypertension) Assessment & Plan: continue clonidine prn (5) Alzheimer's dementia (6) Major depression (7) Hypercholesteremia Assessment & Plan: cont lipitor (8) Hypoglycemia Status: unchanged BILLY GALEAS Jan 17, 2017 09:56
[2017-01-17 11:32] VITALS: BP 143/66
--- NOTE | 2017-01-17 13:20 | General Progress Note ---
Assessment/Plan Status: stable Status Narrative Cr lower Assessment/Plan status: Renal Failure ? Acute ? Underlying chronic Diabetic Nephropathy- Anemia High Cholestrol Depression / Dementia Plan: Hydrate- Khan- urine studies- Avoid Nephrotoxics- mobnitor BS and BP Kidney FLORENCIA- pending 2D Echo- 65% Ej Fx Kayexelate for high K Subjective ROS Limited/Unobtainable: No Constitutional: Reports: malaise, weakness Allergies: Coded Allergies: No Known Allergies (Unverified , 01/15/17) Objective Last 24 Hour Vital Signs Date Time Temp Pulse Resp B/P Pulse Ox O2 Delivery O2 Flow Rate FiO2 01/17/17 11:32 96.6 72 18 143/66 97 Room Air 01/17/17 08:15 96.4 84 18 130/81 96 Room Air 01/17/17 08:00 90 01/17/17 04:00 90 01/17/17 04:00 98.0 88 20 129/82 96 Room Air 01/17/17 00:00 92 01/17/17 00:00 98.1 86 20 130/60 95 Room Air 01/16/17 20:21 81 16 Room Air 21 01/16/17 20:00 98.2 83 19 130/75 95 Room Air 01/16/17 20:00 86 01/16/17 16:00 77 01/16/17 16:00 98.2 114 20 122/58 95 Room Air Intake and Output 01/16/17 01/17/17 19:00 07:00 Intake Total 960 ml 1223 ml Output Total 800 ml Balance 960 ml 423 ml Intake Oral 460 ml 120 ml IV Total 500 ml 1103 ml Output Urine Total 800 ml # Voids 3 # Bowel Movements 1 Laboratory Tests 01/16/17 15:40: Sodium Level 142, Potassium Level 5.7H, Chloride Level 107, Carbon Dioxide Level 17L, Anion Gap 18H, Blood Urea Nitrogen 52H, Creatinine 2.9H, Estimat Glomerular Filtration Rate , Glucose Level 143H, Calcium Level 8.0L 01/16/17 17:20: Urine Random Sodium 103 01/17/17 04:00: Urine Eosinophils None seen 01/17/17 04:25: Sodium Level 145, Potassium Level 5.0H, Chloride Level 110H, Carbon Dioxide Level 16L, Anion Gap 19H, Blood Urea Nitrogen 48H, Creatinine 2.8H, Estimat Glomerular Filtration Rate , Glucose Level 108H, Calcium Level 8.1L, White Blood Count 10.2, Red Blood Count 2.70L, Hemoglobin 7.8L, Hematocrit 24.2L, Mean Corpuscular Volume 90, Mean Corpuscular Hemoglobin 28.7, Mean Corpuscular Hemoglobin Concent 32.1, Red Cell Distribution Width 14.1, Platelet Count 302, Mean Platelet Volume 5.9L, Neutrophils (%) (Auto) , Lymphocytes (%) (Auto) , Monocytes (%) (Auto) , Eosinophils (%) (Auto) , Basophils (%) (Auto) , Uric Acid 6.4, Phosphorus Level 3.9, Magnesium Level 1.8, Total Bilirubin 0.4, Gamma Glutamyl Transpeptidase 13, Aspartate Amino Transf (AST/SGOT) 22, Alanine Aminotransferase (ALT/SGPT) 30, Alkaline Phosphatase 60, Total Creatine Kinase 60, Troponin I < 0.30, C-Reactive Protein, Quantitative 0.6H, Pro-B-Type Natriuretic Peptide 4942H, Total Protein 5.7L, Albumin 3.2L, Globulin 2.5, Albumin/Globulin Ratio 1.2, Triglycerides Level 106, Cholesterol Level 103, LDL Cholesterol 34L, HDL Cholesterol 48, Cholesterol/HDL Ratio 2.1L, Thyroid Stimulating Hormone (TSH) 0.876 Height (Feet): 5 Height (Inches): 4.00 Weight (Pounds): 160 General Appearance: no apparent distress Cardiovascular: regular rhythm Respiratory/Chest: decreased breath sounds Abdomen: soft Objective other PE not changed CHARLEY SARKAR Jan 17, 2017 13:20
--- NOTE | 2017-01-17 14:51 | Cardiac Electrophysiology PN ---
Subjective Subjective [id number] Objective Last 24 Hour Vital Signs Date Time Temp Pulse Resp B/P Pulse Ox O2 Delivery O2 Flow Rate FiO2 01/17/17 11:32 96.6 72 18 143/66 97 Room Air 01/17/17 08:15 96.4 84 18 130/81 96 Room Air 01/17/17 08:00 90 01/17/17 04:00 90 01/17/17 04:00 98.0 88 20 129/82 96 Room Air 01/17/17 00:00 92 01/17/17 00:00 98.1 86 20 130/60 95 Room Air 01/16/17 20:21 81 16 Room Air 21 01/16/17 20:00 98.2 83 19 130/75 95 Room Air 01/16/17 20:00 86 01/16/17 16:00 77 01/16/17 16:00 98.2 114 20 122/58 95 Room Air Intake and Output 01/16/17 01/17/17 19:00 07:00 Intake Total 960 ml 1223 ml Output Total 800 ml Balance 960 ml 423 ml Intake Oral 460 ml 120 ml IV Total 500 ml 1103 ml Output Urine Total 800 ml # Voids 3 # Bowel Movements 1 Laboratory Tests Test 01/16/17 15:40 01/16/17 17:20 01/17/17 04:00 01/17/17 04:25 Sodium Level 142 mEQ/L (135-145) 145 mEQ/L (135-145) Potassium Level 5.7 mEQ/L (3.4-4.9) H 5.0 mEQ/L (3.4-4.9) H Chloride Level 107 mEQ/L (98-107) 110 mEQ/L (98-107) H Carbon Dioxide Level 17 mEQ/L (20-30) L 16 mEQ/L (20-30) L Anion Gap 18 (5-15) H 19 (5-15) H Blood Urea Nitrogen 52 mg/dL (7-23) H 48 mg/dL (7-23) H Creatinine 2.9 mg/dL (0.5-0.9) H 2.8 mg/dL (0.5-0.9) H Estimat Glomerular Filtration Rate mL/min (>60) mL/min (>60) Glucose Level 143 mg/dL (74-106) H 108 mg/dL (74-106) H Calcium Level 8.0 mg/dL (8.6-10.2) L 8.1 mg/dL (8.6-10.2) L Urine Random Sodium 103 mmol/L Urine Eosinophils None seen White Blood Count 10.2 K/UL (4.8-10.8) Red Blood Count 2.70 M/UL (4.20-5.40) L Hemoglobin 7.8 G/DL (12.0-16.0) L Hematocrit 24.2 % (37.0-47.0) L Mean Corpuscular Volume 90 FL (80-99) Mean Corpuscular Hemoglobin 28.7 PG (27.0-31.0) Mean Corpuscular Hemoglobin Concent 32.1 G/DL (32.0-36.0) Red Cell Distribution Width 14.1 % (11.6-14.8) Platelet Count 302 K/UL (150-450) Mean Platelet Volume 5.9 FL (6.5-10.1) L Neutrophils (%) (Auto) % (45.0-75.0) Lymphocytes (%) (Auto) % (20.0-45.0) Monocytes (%) (Auto) % (1.0-10.0) Eosinophils (%) (Auto) % (0.0-3.0) Basophils (%) (Auto) % (0.0-2.0) Uric Acid 6.4 mg/dL (3.0-7.5) Phosphorus Level 3.9 mg/dL (2.5-4.8) Magnesium Level 1.8 mg/dL (1.7-2.5) Total Bilirubin 0.4 mg/dL (0.0-1.2) Gamma Glutamyl Transpeptidase 13 U/L (5-36) Aspartate Amino Transf (AST/SGOT) 22 U/L (5-40) Alanine Aminotransferase (ALT/SGPT) 30 U/L (3-33) Alkaline Phosphatase 60 U/L (35-104) Total Creatine Kinase 60 U/L (26-140) Troponin I < 0.30 ng/mL (<=0.30) C-Reactive Protein, Quantitative 0.6 mg/dL (< 0.5) H Pro-B-Type Natriuretic Peptide 4942 pg/mL (0-450) H Total Protein 5.7 g/dL (6.6-8.7) L Albumin 3.2 g/dL (3.5-5.2) L Globulin 2.5 g/dL Albumin/Globulin Ratio 1.2 (1.0-2.7) Triglycerides Level 106 mg/dL (< 150) Cholesterol Level 103 mg/dL (< 200) LDL Cholesterol 34 mg/dL (60-99) L HDL Cholesterol 48 mg/dL (> 60) Cholesterol/HDL Ratio 2.1 (3.3-4.4) L Thyroid Stimulating Hormone (TSH) 0.876 uIU/mL (0.300-4.500) Microbiology Date/Time Source Procedure Growth Status 01/15/17 21:11 Blood Blood Culture - Preliminary NO GROWTH AFTER 24 HOURS Resulted 01/15/17 21:01 Blood Blood Culture - Preliminary NO GROWTH AFTER 24 HOURS Resulted BERONICA SINGH Jan 17, 2017 14:51
[2017-01-17 16:00] VITALS: BP 137/69
--- NOTE | 2017-01-17 16:06 | Diagnostic Imaging Report ---
Indication: Altered mental status Technique: The head was imaged in a 1.5 Katya magnet. Sequences obtained include sagittal and axial T1 FLAIR, axial T2 fast spin echo with fat saturation, axial T2 FLAIR, diffusion and ADC map. Comparison: None Findings: There is moderate prominence of the sulci, ventricles, and basal cisterns consistent with atrophy. Moderate, nonspecific T2 hyperintensity noted within white matter. This may be due to chronic small vessel disease. Small cystic focus in the left centrum semiovale noted consistent with an old lacunar infarct. There is no restricted diffusion. Norwood-white differentiation is normal. There is no mass effect, midline shift, edema, or hemorrhage. There are no abnormal extra-axial or intra-axial fluid collections. The corpus callosum and sella are unremarkable. The brainstem and cerebellum are unremarkable. Bone marrow signal within the visualized osseous structures appears age appropriate and unremarkable otherwise. Impression: No acute intracranial findings. Moderate atrophy and evidence of chronic small vessel disease involving white matter tracts.
[2017-01-17 16:28] LABS: BASOPHILS % (AUTO) 0.9 % (0.0-2.0); EOSINOPHILS % (AUTO) 1.7 % (0.0-3.0); LYMPHOCYTES % (AUTO) 20.4 % (20.0-45.0); MEAN CORPUSCULAR HEMOGLOBIN 28.9 PG (27.0-31.0); MEAN CORPUSCULAR HGB CONC 32.4 G/DL (32.0-36.0); MEAN CORPUSCULAR VOLUME 89 FL (80-99); MEAN PLATELET VOLUME 5.6 FL (6.5-10.1); MONOCYTES % (AUTO) 7.3 % (1.0-10.0); NEUTROPHILS % (AUTO) 69.6 % (45.0-75.0); PLATELET COUNT 301 K/UL (150-450); RED BLOOD COUNT 2.81 M/UL (4.20-5.40); RED CELL DISTRIBUTION WIDTH 14.1 % (11.6-14.8); WHITE BLOOD COUNT 8.8 K/UL (4.8-10.8)
[2017-01-17 16:52] LABS: ANION GAP 15 (5-15); CALCIUM 8.1 mg/dL (8.6-10.2); CARBON DIOXIDE 20 mEQ/L (20-30); CHLORIDE 108 mEQ/L (98-107); CREATININE 2.6 mg/dL (0.5-0.9); HEMOLYSIS 3; POTASSIUM 5.1 mEQ/L (3.4-4.9); SODIUM 143 mEQ/L (135-145)
[2017-01-17 20:00] VITALS: BP 135/70
--- NOTE | 2017-01-17 22:18 | Consultation ---
DATE OF CONSULTATION: 01/17/2017 CARDIOLOGY CONSULTATION CONSULTING PHYSICIAN: Socrates Chase M.D. REFERRING PHYSICIAN: Dk Acevedo M.D. REASON FOR CONSULTATION: Atrial fibrillation as well as hypertension. HISTORY OF PRESENT ILLNESS: The patient is an 86-year-old lady with history of hypertension, type 2 diabetes, depression, and Alzheimer's dementia who was brought to the emergency room as she had syncopal episodes. The got concerned and called 911. The blood sugar was 48 by the paramedics. The patient was brought to the emergency room of [facility] and was admitted for hypoglycemia and altered mental status. While she was on telemetry, had short runs of atrial fibrillation with rapid ventricular response. A cardiology consultation was obtained for further evaluation. At the time of my evaluation, the patient has no chest pain, no palpitation, or shortness of breath. PAST MEDICAL HISTORY: 1. Hypertension. 2. Type 2 diabetes. 3. Alzheimer's dementia. 4. Depression. PAST SURGICAL HISTORY: Includes left shoulder surgery. MEDICATIONS: At home include: 1. Norvasc 5 mg. 2. Lipitor 80 mg. 3. Lisinopril 20 mg. 4. Gabapentin mg daily. 5. Namenda. 6. Januvia. ALLERGIES: She has no known drug allergies. SOCIAL HISTORY: She is and lives with her . She does not smoke or drink alcohol. REVIEW OF SYSTEMS: Review of systems was performed and was negative other than what was mentioned in the history of present illness. PHYSICAL EXAMINATION: VITAL SIGNS: Blood pressure is 142/60, pulse 72, respirations 18, and temperature 97. HEAD AND NECK: Showed no JVD. LUNGS: Clear. CARDIOVASCULAR: Regular S1 and S2 with no gallop or murmur. ABDOMEN: Soft. EXTREMITIES: No pitting edema. DIAGNOSTIC DATA: Her echocardiogram showed ejection fraction of 60 to 65%. Her EKG showed sinus rhythm with frequent PACs and sinus arrhythmia. The telemetry strip showed short run of atrial fibrillation with rapid ventricular response with a heart rate up to 150s with spontaneous conversion to sinus rhythm. LABORATORY DATA: Labs showed white count of 10.2, hemoglobin 7.8, hematocrit 24.2, and platelet count of 302,000. Sodium 145, potassium initially was 6, currently is 5, BUN of 48, creatinine of 2.8, and glucose of 108. BNP is 4942. Troponin is negative. ASSESSMENT AND PLAN: 1. Episodes of atrial tachycardia versus atrial fibrillation with rapid ventricular response. I will start her on Cardizem 30 mg by mouth 3 times a day. Continue to watch the patient on telemetry. Echocardiogram showed normal left ventricular systolic function. We will completely rule out myocardial infarction protocol as well. 2. Hypertension. Start the patient on Cardizem 30 mg 3 times a day. 3. Hyperlipidemia, on Lipitor. 4. Chronic kidney disease with creatinine of 2.5. Further evaluation by Nephrology. 5. Altered mental status secondary to hypoglycemia. A CT of the head was performed today. 6. Hyperkalemia due to renal failure. Keep the patient off angiotensin-converting enzyme inhibitor and angiotensin receptor vj, and the patient received Kayexalate. Thank you very much, Dr. Acevedo, for allowing me to participate in the care of this patient. Please do not hesitate to contact me if you have any questions regarding my evaluation. Socrates Chase M.D. DR: AMAN JOB#: [id number] CC:
--- NOTE | 2017-01-17 22:33 | Pulmonology Progress Note ---
Assessment/Plan Assessment/Plan Assessment/Plan Assessment/Plan ASSESSMENT acute metabolic encephalopathy liekly 2 to hypoglycemia -resolved episode of hypoglycemia DM acute renal failreu, possibly on chronic ( ? diabetic nephropathy) hyperkalemia anemia hx of HTN dementia tachybrady syndrome PLAN OF CARE Admit to tele Nephrology consult IVF monitor renal parameters, lytes ARF possibly precipitated by medications as well as dehydration check renal US continue Kayexalate need to be on tele until K stable, no peaked T wave on tele strip avoid nephrotoxic agents BS management with SS of insulin Subjective ROS Limited/Unobtainable: Yes Constitutional: Reports: anorexia, fatigue Neurologic: Reports: confusion, weakness Allergies: Coded Allergies: No Known Allergies (Unverified , 01/15/17) Objective Last 24 Hour Vital Signs Date Time Temp Pulse Resp B/P Pulse Ox O2 Delivery O2 Flow Rate FiO2 01/17/17 21:25 79 135/70 01/17/17 20:00 97.8 79 20 135/70 97 Room Air 01/17/17 19:03 78 18 Room Air 21 01/17/17 16:00 98.0 75 20 137/69 96 Room Air 01/17/17 16:00 79 01/17/17 12:00 73 01/17/17 11:32 96.6 72 18 143/66 97 Room Air 01/17/17 08:15 96.4 84 18 130/81 96 Room Air 01/17/17 08:00 90 01/17/17 04:00 90 01/17/17 04:00 98.0 88 20 129/82 96 Room Air 01/17/17 00:00 92 01/17/17 00:00 98.1 86 20 130/60 95 Room Air Intake and Output 01/16/17 01/17/17 19:00 07:00 Intake Total 960 ml 1223 ml Output Total 800 ml Balance 960 ml 423 ml Intake Oral 460 ml 120 ml IV Total 500 ml 1103 ml Output Urine Total 800 ml # Voids 3 # Bowel Movements 1 General Appearance: no acute distress HEENT: normocephalic, atraumatic, mucous membranes moist Respiratory/Chest: chest wall non-tender, decreased breath sounds, accessory muscle use Breasts: no masses Cardiovascular: normal peripheral pulses, normal rate, regular rhythm, no JVD Abdomen: normal bowel sounds, soft, non tender, no organomegaly Genitourinary: normal external genitalia Extremities: no cyanosis Skin: no rash 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, responsive, disoriented Microbiology Date/Time Source Procedure Growth Status 01/15/17 21:11 Blood Blood Culture - Preliminary NO GROWTH AFTER 24 HOURS Resulted 01/15/17 21:01 Blood Blood Culture - Preliminary NO GROWTH AFTER 24 HOURS Resulted Laboratory Tests 01/17/17 04:00: Urine Eosinophils None seen 01/17/17 04:25: White Blood Count 10.2, Red Blood Count 2.70L, Hemoglobin 7.8L, Hematocrit 24.2L , Mean Corpuscular Volume 90, Mean Corpuscular Hemoglobin 28.7, Mean Corpuscular Hemoglobin Concent 32.1, Red Cell Distribution Width 14.1, Platelet Count 302, Mean Platelet Volume 5.9L, Neutrophils (%) (Auto) , Lymphocytes (%) ( Auto) , Monocytes (%) (Auto) , Eosinophils (%) (Auto) , Basophils (%) (Auto) , Sodium Level 145, Potassium Level 5.0H, Chloride Level 110H, Carbon Dioxide Level 16L, Anion Gap 19H, Blood Urea Nitrogen 48H, Creatinine 2.8H, Estimat Glomerular Filtration Rate , Glucose Level 108H, Uric Acid 6.4, Calcium Level 8.1L, Phosphorus Level 3.9, Magnesium Level 1.8, Total Bilirubin 0.4, Gamma Glutamyl Transpeptidase 13, Aspartate Amino Transf (AST/SGOT) 22, Alanine Aminotransferase (ALT/SGPT) 30, Alkaline Phosphatase 60, Total Creatine Kinase 60, Troponin I < 0.30, C-Reactive Protein, Quantitative 0.6H, Pro-B-Type Natriuretic Peptide 4942H, Total Protein 5.7L, Albumin 3.2L, Globulin 2.5, Albumin/Globulin Ratio 1.2, Triglycerides Level 106, Cholesterol Level 103, LDL Cholesterol 34L, HDL Cholesterol 48, Cholesterol/HDL Ratio 2.1L, Thyroid Stimulating Hormone (TSH) 0.876 01/17/17 15:15: White Blood Count 8.8, Red Blood Count 2.81L, Hemoglobin 8.1L, Hematocrit 25.1L , Mean Corpuscular Volume 89, Mean Corpuscular Hemoglobin 28.9, Mean Corpuscular Hemoglobin Concent 32.4, Red Cell Distribution Width 14.1, Platelet Count 301, Mean Platelet Volume 5.6L, Neutrophils (%) (Auto) 69.6, Lymphocytes ( %) (Auto) 20.4, Monocytes (%) (Auto) 7.3, Eosinophils (%) (Auto) 1.7, Basophils (%) (Auto) 0.9, Sodium Level 143, Potassium Level 5.1H, Chloride Level 108H, Carbon Dioxide Level 20, Anion Gap 15, Blood Urea Nitrogen 43H, Creatinine 2.6H , Estimat Glomerular Filtration Rate , Glucose Level 228#H, Calcium Level 8.1L Current Medications Medications (Trade) Dose Ordered Sig/Leydi Route PRN Reason Start Time Stop Time Status Last Admin Dose Admin Acetaminophen (Tylenol) 650 mg Q4H PRN ORAL fever 01/15/17 23:15 02/14/17 23:14 Albuterol/ Ipratropium (DuoNeb 0.5-3(2.5)mg/3ml) 3 ml Q6HRT PRN HHN dyspnea 01/15/17 23:15 01/20/17 23:14 Atorvastatin Calcium (Lipitor) 40 mg QHS ORAL 01/16/17 21:00 02/15/17 20:59 01/17/17 21:24 Clonidine HCl (Catapres) 0.1 mg Q4H PRN ORAL For High Blood Pressure 01/15/17 23:15 02/14/17 23:14 Dextrose (Dextrose 50%) STAT PRN IV Hypoglycemia 01/15/17 23:15 02/14/17 23:14 Diltiazem HCl (Cardizem) 30 mg EVERY 8 HOURS ORAL 01/17/17 22:00 02/16/17 21:59 01/17/17 21:25 Heparin Sodium (Porcine) (Heparin 5000 units/ml) 5,000 units EVERY 12 HOURS SUBQ 01/16/17 09:00 02/15/17 08:59 01/17/17 21:47 Insulin Aspart (NovoLOG) BEFORE MEALS AND HS SUBQ 01/16/17 06:30 02/15/17 06:29 01/17/17 21:48 Morphine Sulfate (Morphine Sulfate) 1 mg EVERY 4 HOURS PRN IVP For Pain 01/15/17 23:15 01/22/17 23:14 Ondansetron HCl (Zofran) 4 mg Q6H PRN IVP Nausea & Vomiting 01/15/17 23:15 02/14/17 23:14 Polyethylene Glycol (Miralax) 17 gm HSPRN PRN ORAL Constipation 01/15/17 23:15 02/14/17 23:14 01/16/17 08:25 Sodium Polystyrene Sulfonate 45 gm 45 gm DAILY ORAL 01/16/17 09:00 01/19/17 08:59 01/17/17 09:06 Sodium Chloride (Sodium Chloride 1000ml bag) 1,000 ml @ 100 mls/hr Q10H IV 01/16/17 10:00 02/15/17 09:59 01/17/17 16:44 Zolpidem Tartrate (Ambien) 5 mg HSPRN PRN ORAL Insomnia 01/15/17 23:15 02/14/17 23:14 01/17/17 21:24 GERARDO CHIU Jan 17, 2017 22:33
[2017-01-18 00:20] VITALS: BP 134/61
[2017-01-18 04:25] VITALS: BP 166/70
[2017-01-18] MEDS: NovoLOG Insulin Flexpen SUBQ SCH ×4 (07:02→21:46)
[2017-01-18 07:25] LABS: MEAN CORPUSCULAR HEMOGLOBIN 28.4 PG (27.0-31.0); MEAN CORPUSCULAR HGB CONC 31.8 G/DL (32.0-36.0); MEAN CORPUSCULAR VOLUME 89 FL (80-99); MEAN PLATELET VOLUME 5.6 FL (6.5-10.1); PLATELET COUNT 269 K/UL (150-450); RED BLOOD COUNT 2.62 M/UL (4.20-5.40); RED CELL DISTRIBUTION WIDTH 13.8 % (11.6-14.8); WHITE BLOOD COUNT 8.5 K/UL (4.8-10.8)
[2017-01-18 07:45] LABS: ANION GAP 17 (5-15); CALCIUM 8.1 mg/dL (8.6-10.2); CARBON DIOXIDE 18 mEQ/L (20-30); CHLORIDE 111 mEQ/L (98-107); CREATININE 2.3 mg/dL (0.5-0.9); HEMOLYSIS 2; POTASSIUM 4.5 mEQ/L (3.4-4.9); SODIUM 146 mEQ/L (135-145)
[2017-01-18 07:49] VITALS: BP 121/51
[2017-01-18] MEDS: Sodium Polystyrene Sulfonate 15gm Powder ORAL SCH ×2 (09:00→09:21)
[2017-01-18] MEDS: Heparin 5000 units/ml inj SUBQ SCH ×2 (09:22→21:43)
--- NOTE | 2017-01-18 09:41 | Diagnostic Imaging Report ---
Indication: Acute renal failure Technique: Grayscale and duplex images of the kidneys, retroperitoneum, and bladder were obtained. Comparison:None Findings: Right kidney measures 10.6 cm in length. Left kidney measures 9.5 cm in length. Both kidneys demonstrate normal echogenicity. No hydronephrosis. There are bilateral multiple renal cysts. Largest on the 3.3 cm in length. Largest on the left measures 3.2 cm in length.. Normal inferior vena cava. Bladder is empty, contains a Khan catheter. Impression: Negative for hydronephrosis Khan catheter within empty bladder Incidental finding bilateral renal cysts.
[2017-01-18 11:30] VITALS: BP 134/67
[2017-01-18 12:06] LABS: BAND NEUTROPHILS % (MANUAL) 0 % (0-8); BASOPHILS % (MANUAL) 0 % (0-2); EOSINOPHILS % (MANUAL) 3 % (0-3); LYMPHOCYTES % (MANUAL) 18 % (20-45); NEUTROPHILS % (MANUAL) 69 % (45-75); PLATELET ESTIMATE ADEQUATE; PLATELET MORPHOLOGY NORMAL; TOTAL CELLS COUNTED 100
--- NOTE | 2017-01-18 12:41 | General Progress Note ---
Assessment/Plan Status: stable Status Narrative improving- discussed with son "Edvin" at bed side Hgb lower Assessment/Plan status: Renal Failure ? Acute ? Underlying chronic Diabetic Nephropathy- Anemia, chronic High Cholestrol Depression / Dementia brain MRI noted Plan: transfuse Hydrate- Khan- urine studies- Avoid Nephrotoxics- monitor BS and BP Kidney FLORENCIA- Impression: Negative for hydronephrosis 2D Echo- 65% Ej Fx Kayexelate for high K on admission discussed with son Subjective Constitutional: Reports: malaise, other - more responsive Allergies: Coded Allergies: No Known Allergies (Unverified , 01/15/17) Objective Last 24 Hour Vital Signs Date Time Temp Pulse Resp B/P Pulse Ox O2 Delivery O2 Flow Rate FiO2 01/18/17 11:30 97.3 65 18 134/67 94 Room Air 01/18/17 08:00 67 01/18/17 07:50 77 18 Room Air 21 01/18/17 07:49 97.3 77 18 121/51 96 Room Air 01/18/17 07:03 72 166/70 01/18/17 04:25 98.0 72 20 166/70 97 Room Air 01/18/17 04:04 79 01/18/17 00:20 98.1 83 20 134/61 94 Room Air 01/17/17 23:43 71 01/17/17 21:25 79 135/70 01/17/17 20:00 97.8 79 20 135/70 97 Room Air 01/17/17 19:42 73 01/17/17 19:03 78 18 Room Air 21 01/17/17 16:00 98.0 75 20 137/69 96 Room Air 01/17/17 16:00 79 Intake and Output 01/17/17 01/18/17 19:00 07:00 Intake Total 940 ml 1500 ml Output Total 1000 ml Balance 940 ml 500 ml Intake Oral 240 ml 200 ml IV Total 700 ml 1300 ml Output Urine Total 1000 ml # Bowel Movements 2 1 Laboratory Tests 01/17/17 15:15: White Blood Count 8.8, Red Blood Count 2.81L, Hemoglobin 8.1L, Hematocrit 25.1L , Mean Corpuscular Volume 89, Mean Corpuscular Hemoglobin 28.9, Mean Corpuscular Hemoglobin Concent 32.4, Red Cell Distribution Width 14.1, Platelet Count 301, Mean Platelet Volume 5.6L, Neutrophils (%) (Auto) 69.6, Lymphocytes ( %) (Auto) 20.4, Monocytes (%) (Auto) 7.3, Eosinophils (%) (Auto) 1.7, Basophils (%) (Auto) 0.9, Sodium Level 143, Potassium Level 5.1H, Chloride Level 108H, Carbon Dioxide Level 20, Anion Gap 15, Blood Urea Nitrogen 43H, Creatinine 2.6H , Estimat Glomerular Filtration Rate , Glucose Level 228#H, Calcium Level 8.1L 01/18/17 06:40: White Blood Count 8.5, Red Blood Count 2.62L, Hemoglobin 7.4L, Hematocrit 23.4L , Mean Corpuscular Volume 89, Mean Corpuscular Hemoglobin 28.4, Mean Corpuscular Hemoglobin Concent 31.8L, Red Cell Distribution Width 13.8, Platelet Count 269, Mean Platelet Volume 5.6L, Neutrophils (%) (Auto) , Lymphocytes (%) (Auto) , Monocytes (%) (Auto) , Eosinophils (%) (Auto) , Basophils (%) (Auto) , Sodium Level 146H, Potassium Level 4.5, Chloride Level 111H, Carbon Dioxide Level 18L, Anion Gap 17H, Blood Urea Nitrogen 38H, Creatinine 2.3H, Estimat Glomerular Filtration Rate , Glucose Level 115#H, Calcium Level 8.1L, Differential Total Cells Counted 100, Neutrophils % (Manual ) 69, Lymphocytes % (Manual) 18L, Monocytes % (Manual) 10, Eosinophils % (Manual ) 3, Basophils % (Manual) 0, Band Neutrophils 0, Platelet Estimate Adequate, Platelet Morphology Normal, Red Blood Cell Morphology Normal 01/18/17 09:50: Urine Eosinophils [Pending] Height (Feet): 5 Height (Inches): 4.00 Weight (Pounds): 160 General Appearance: no apparent distress, other - more responsive Cardiovascular: normal rate Respiratory/Chest: decreased breath sounds Abdomen: soft Objective other PE not changed CHARLEY SARKAR Jan 18, 2017 12:40
--- NOTE | 2017-01-18 14:57 | Internal Med Progress Note ---
Subjective Physician Name Stone Galeas Attending Physician Dk Acevedo MD Current Medications Medications (Trade) Dose Ordered Sig/Leydi Route PRN Reason Start Time Stop Time Status Last Admin Dose Admin Acetaminophen (Tylenol) 650 mg Q4H PRN ORAL fever 01/15/17 23:15 02/14/17 23:14 Albuterol/ Ipratropium (DuoNeb 0.5-3(2.5)mg/3ml) 3 ml Q6HRT PRN HHN dyspnea 01/15/17 23:15 01/20/17 23:14 Atorvastatin Calcium (Lipitor) 40 mg QHS ORAL 01/16/17 21:00 02/15/17 20:59 01/17/17 21:24 Clonidine HCl (Catapres) 0.1 mg Q4H PRN ORAL For High Blood Pressure 01/15/17 23:15 02/14/17 23:14 Dextrose (Dextrose 50%) STAT PRN IV Hypoglycemia 01/15/17 23:15 02/14/17 23:14 Diltiazem HCl (Cardizem) 30 mg EVERY 8 HOURS ORAL 01/17/17 22:00 02/16/17 21:59 01/18/17 13:21 Heparin Sodium (Porcine) (Heparin 5000 units/ml) 5,000 units EVERY 12 HOURS SUBQ 01/16/17 09:00 02/15/17 08:59 01/18/17 09:22 Insulin Aspart (NovoLOG) BEFORE MEALS AND HS SUBQ 01/16/17 06:30 02/15/17 06:29 01/18/17 07:02 Morphine Sulfate (Morphine Sulfate) 1 mg EVERY 4 HOURS PRN IVP For Pain 01/15/17 23:15 01/22/17 23:14 Ondansetron HCl (Zofran) 4 mg Q6H PRN IVP Nausea & Vomiting 01/15/17 23:15 02/14/17 23:14 Polyethylene Glycol (Miralax) 17 gm HSPRN PRN ORAL Constipation 01/15/17 23:15 02/14/17 23:14 01/16/17 08:25 Sodium Polystyrene Sulfonate 45 gm 45 gm DAILY ORAL 01/16/17 09:00 01/19/17 08:59 01/18/17 09:21 Sodium Chloride (Sodium Chloride 1000ml bag) 1,000 ml @ 100 mls/hr Q10H IV 01/16/17 10:00 02/15/17 09:59 01/18/17 13:21 Zolpidem Tartrate (Ambien) 5 mg HSPRN PRN ORAL Insomnia 01/15/17 23:15 02/14/17 23:14 01/17/17 21:24 Allergies: Coded Allergies: No Known Allergies (Unverified , 01/15/17) Subjective 86 YO F admitted with vertigo and altered mental status. Found to be Hypoglycemic. Cover for Int Med-Dr Acevedo. Objective Last Vital Signs Date Time Temp Pulse Resp B/P Pulse Ox O2 Delivery O2 Flow Rate FiO2 01/18/17 13:21 65 134/67 01/18/17 11:30 97.3 18 94 Room Air 01/18/17 07:50 21 01/16/17 04:30 2.0 Laboratory Tests Test 01/17/17 15:15 01/18/17 06:40 01/18/17 09:50 White Blood Count 8.8 K/UL (4.8-10.8) 8.5 K/UL (4.8-10.8) Red Blood Count 2.81 M/UL (4.20-5.40) L 2.62 M/UL (4.20-5.40) L Hemoglobin 8.1 G/DL (12.0-16.0) L 7.4 G/DL (12.0-16.0) L Hematocrit 25.1 % (37.0-47.0) L 23.4 % (37.0-47.0) L Mean Corpuscular Volume 89 FL (80-99) 89 FL (80-99) Mean Corpuscular Hemoglobin 28.9 PG (27.0-31.0) 28.4 PG (27.0-31.0) Mean Corpuscular Hemoglobin Concent 32.4 G/DL (32.0-36.0) 31.8 G/DL (32.0-36.0) L Red Cell Distribution Width 14.1 % (11.6-14.8) 13.8 % (11.6-14.8) Platelet Count 301 K/UL (150-450) 269 K/UL (150-450) Mean Platelet Volume 5.6 FL (6.5-10.1) L 5.6 FL (6.5-10.1) L Neutrophils (%) (Auto) 69.6 % (45.0-75.0) % (45.0-75.0) Lymphocytes (%) (Auto) 20.4 % (20.0-45.0) % (20.0-45.0) Monocytes (%) (Auto) 7.3 % (1.0-10.0) % (1.0-10.0) Eosinophils (%) (Auto) 1.7 % (0.0-3.0) % (0.0-3.0) Basophils (%) (Auto) 0.9 % (0.0-2.0) % (0.0-2.0) Sodium Level 143 mEQ/L (135-145) 146 mEQ/L (135-145) H Potassium Level 5.1 mEQ/L (3.4-4.9) H 4.5 mEQ/L (3.4-4.9) Chloride Level 108 mEQ/L (98-107) H 111 mEQ/L (98-107) H Carbon Dioxide Level 20 mEQ/L (20-30) 18 mEQ/L (20-30) L Anion Gap 15 (5-15) 17 (5-15) H Blood Urea Nitrogen 43 mg/dL (7-23) H 38 mg/dL (7-23) H Creatinine 2.6 mg/dL (0.5-0.9) H 2.3 mg/dL (0.5-0.9) H Estimat Glomerular Filtration Rate mL/min (>60) mL/min (>60) Glucose Level 228 mg/dL (74-106) #H 115 mg/dL (74-106) #H Calcium Level 8.1 mg/dL (8.6-10.2) L 8.1 mg/dL (8.6-10.2) L Differential Total Cells Counted 100 Neutrophils % (Manual) 69 % (45-75) Lymphocytes % (Manual) 18 % (20-45) L Monocytes % (Manual) 10 % (1-10) Eosinophils % (Manual) 3 % (0-3) Basophils % (Manual) 0 % (0-2) Band Neutrophils 0 % (0-8) Platelet Estimate Adequate Platelet Morphology Normal Red Blood Cell Morphology Normal Urine Eosinophils None seen Microbiology Date/Time Source Procedure Growth Status 01/15/17 21:11 Blood Blood Culture - Preliminary NO GROWTH AFTER 48 HOURS Resulted 01/15/17 21:01 Blood Blood Culture - Preliminary NO GROWTH AFTER 48 HOURS Resulted Intake and Output 01/17/17 01/18/17 19:00 07:00 Intake Total 940 ml 1500 ml Output Total 1000 ml Balance 940 ml 500 ml Intake Oral 240 ml 200 ml IV Total 700 ml 1300 ml Output Urine Total 1000 ml # Bowel Movements 2 1 Objective General Appearance: WD/WN, no apparent distress, alert EENT: PERRL/EOMI, normal ENT inspection, TMs normal Neck: non-tender, normal alignment, supple, normal inspection Cardiovascular: regular rhythm, no gallop/murmur, no JVD Respiratory/Chest: chest wall non-tender, lungs clear, normal breath sounds, no respiratory distress, no accessory muscle use Abdomen: normal bowel sounds, non tender, soft, no organomegaly, no mass Extremities: normal range of motion 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 (4) HTN (hypertension) Assessment & Plan: See cardiology note. Start cardizem and continue clonidine prn (5) Alzheimer's dementia (6) Major depression (7) Hypercholesteremia Assessment & Plan: cont lipitor (8) Hypoglycemia Assessment & Plan: Resolved on novolog sliding scale. (9) Renal failure Assessment & Plan: See nephrology note. Status: progressing STONE GALEAS Jan 18, 2017 14:57
--- NOTE | 2017-01-18 15:07 | Cardiac Electrophysiology PN ---
Assessment/Plan Assessment/Plan 1. Episodes of atrial tachycardia versus atrial fibrillation with rapid ventricular response.Better on Cardizem 30 mg by mouth 3 times a day. Echocardiogram showed normal left ventricular systolic function. Ruled out for myocardial infarction. 2. Hypertension. Continue Cardizem 30 mg 3 times a day. 3. Hyperlipidemia, on Lipitor. 4. Chronic kidney disease with creatinine of 2.5. 5. Altered mental status secondary to hypoglycemia. MRI of the brain was negative 6. Hyperkalemia due to renal failure. Keep the patient off angiotensin- converting enzyme inhibitor and angiotensin receptor vj. Resolved after Kayexalate. 7. Severe anemia, S/P 1 unit of PRBC DW RN, son and Dr Acevedo at bedside. Subjective Subjective Feeling better.Dr Acevedo, and son at bedside.No chest pain or SOB Objective Last 24 Hour Vital Signs Date Time Temp Pulse Resp B/P Pulse Ox O2 Delivery O2 Flow Rate FiO2 01/18/17 13:21 65 134/67 01/18/17 12:00 65 01/18/17 11:30 97.3 65 18 134/67 94 Room Air 01/18/17 08:00 67 01/18/17 07:50 77 18 Room Air 21 01/18/17 07:49 97.3 77 18 121/51 96 Room Air 01/18/17 07:03 72 166/70 01/18/17 04:25 98.0 72 20 166/70 97 Room Air 01/18/17 04:04 79 01/18/17 00:20 98.1 83 20 134/61 94 Room Air 01/17/17 23:43 71 01/17/17 21:25 79 135/70 01/17/17 20:00 97.8 79 20 135/70 97 Room Air 01/17/17 19:42 73 01/17/17 19:03 78 18 Room Air 21 01/17/17 16:00 98.0 75 20 137/69 96 Room Air 01/17/17 16:00 79 Intake and Output 01/17/17 01/18/17 19:00 07:00 Intake Total 940 ml 1500 ml Output Total 1000 ml Balance 940 ml 500 ml Intake Oral 240 ml 200 ml IV Total 700 ml 1300 ml Output Urine Total 1000 ml # Bowel Movements 2 1 Laboratory Tests Test 01/17/17 15:15 01/18/17 06:40 01/18/17 09:50 White Blood Count 8.8 K/UL (4.8-10.8) 8.5 K/UL (4.8-10.8) Red Blood Count 2.81 M/UL (4.20-5.40) L 2.62 M/UL (4.20-5.40) L Hemoglobin 8.1 G/DL (12.0-16.0) L 7.4 G/DL (12.0-16.0) L Hematocrit 25.1 % (37.0-47.0) L 23.4 % (37.0-47.0) L Mean Corpuscular Volume 89 FL (80-99) 89 FL (80-99) Mean Corpuscular Hemoglobin 28.9 PG (27.0-31.0) 28.4 PG (27.0-31.0) Mean Corpuscular Hemoglobin Concent 32.4 G/DL (32.0-36.0) 31.8 G/DL (32.0-36.0) L Red Cell Distribution Width 14.1 % (11.6-14.8) 13.8 % (11.6-14.8) Platelet Count 301 K/UL (150-450) 269 K/UL (150-450) Mean Platelet Volume 5.6 FL (6.5-10.1) L 5.6 FL (6.5-10.1) L Neutrophils (%) (Auto) 69.6 % (45.0-75.0) % (45.0-75.0) Lymphocytes (%) (Auto) 20.4 % (20.0-45.0) % (20.0-45.0) Monocytes (%) (Auto) 7.3 % (1.0-10.0) % (1.0-10.0) Eosinophils (%) (Auto) 1.7 % (0.0-3.0) % (0.0-3.0) Basophils (%) (Auto) 0.9 % (0.0-2.0) % (0.0-2.0) Sodium Level 143 mEQ/L (135-145) 146 mEQ/L (135-145) H Potassium Level 5.1 mEQ/L (3.4-4.9) H 4.5 mEQ/L (3.4-4.9) Chloride Level 108 mEQ/L (98-107) H 111 mEQ/L (98-107) H Carbon Dioxide Level 20 mEQ/L (20-30) 18 mEQ/L (20-30) L Anion Gap 15 (5-15) 17 (5-15) H Blood Urea Nitrogen 43 mg/dL (7-23) H 38 mg/dL (7-23) H Creatinine 2.6 mg/dL (0.5-0.9) H 2.3 mg/dL (0.5-0.9) H Estimat Glomerular Filtration Rate mL/min (>60) mL/min (>60) Glucose Level 228 mg/dL (74-106) #H 115 mg/dL (74-106) #H Calcium Level 8.1 mg/dL (8.6-10.2) L 8.1 mg/dL (8.6-10.2) L Differential Total Cells Counted 100 Neutrophils % (Manual) 69 % (45-75) Lymphocytes % (Manual) 18 % (20-45) L Monocytes % (Manual) 10 % (1-10) Eosinophils % (Manual) 3 % (0-3) Basophils % (Manual) 0 % (0-2) Band Neutrophils 0 % (0-8) Platelet Estimate Adequate Platelet Morphology Normal Red Blood Cell Morphology Normal Urine Eosinophils None seen Microbiology Date/Time Source Procedure Growth Status 01/15/17 21:11 Blood Blood Culture - Preliminary NO GROWTH AFTER 48 HOURS Resulted 01/15/17 21:01 Blood Blood Culture - Preliminary NO GROWTH AFTER 48 HOURS Resulted Objective HEAD AND NECK: Showed no JVD. LUNGS: Clear. CARDIOVASCULAR: Regular S1 and S2 with no gallop or murmur. ABDOMEN: Soft. EXTREMITIES: No pitting edema. BERONICA SINGH Jan 18, 2017 15:07
[2017-01-18 16:00] VITALS: BP 134/67
[2017-01-18 20:00] VITALS: BP 98/50
[2017-01-19 04:30] VITALS: BP 144/74
[2017-01-19] MEDS: NovoLOG Insulin Flexpen SUBQ SCH ×4 (06:30→21:30)
[2017-01-19 07:27] LABS: BASOPHILS % (AUTO) 0.9 % (0.0-2.0); EOSINOPHILS % (AUTO) 2.4 % (0.0-3.0); LYMPHOCYTES % (AUTO) 18.2 % (20.0-45.0); MEAN CORPUSCULAR HEMOGLOBIN 29.5 PG (27.0-31.0); MEAN CORPUSCULAR HGB CONC 32.9 G/DL (32.0-36.0); MEAN CORPUSCULAR VOLUME 90 FL (80-99); MONOCYTES % (AUTO) 7.2 % (1.0-10.0); NEUTROPHILS % (AUTO) 71.2 % (45.0-75.0); PLATELET COUNT 269 K/UL (150-450); RED BLOOD COUNT 3.42 M/UL (4.20-5.40); RED CELL DISTRIBUTION WIDTH 14.5 % (11.6-14.8); WHITE BLOOD COUNT 9.5 K/UL (4.8-10.8)
[2017-01-19 07:33] LABS: INR 1.1 (0.9-1.1); PROTHROMBIN TIME 11.5 SEC (9.30-11.50)
[2017-01-19 07:40] LABS: HEMOLYSIS 4; IRON 32 ug/dL (37-145); LACTATE DEHYDROGENASE 202 U/L (135-230); TOTAL IRON BINDING CAPACITY 205 ug/dL (250-400)
[2017-01-19 07:47] LABS: ANION GAP 17 (5-15); CALCIUM 8.6 mg/dL (8.6-10.2); CARBON DIOXIDE 19 mEQ/L (20-30); CHLORIDE 110 mEQ/L (98-107); CREATININE 2.1 mg/dL (0.5-0.9); HEMOLYSIS 3; POTASSIUM 4.1 mEQ/L (3.4-4.9); SODIUM 146 mEQ/L (135-145)
[2017-01-19 08:00] VITALS: BP 137/76
[2017-01-19 09:25] LABS: ERYTHROCYTE SEDIMENTATION RATE 110 MM/HR (0-42)
[2017-01-19] MEDS: Heparin 5000 units/ml inj SUBQ SCH ×2 (09:48→21:31)
--- NOTE | 2017-01-19 10:22 | General Progress Note ---
Assessment/Plan Status: stable Status Narrative Cr lower- MS improving- Hgb hogher post transfusion Assessment/Plan status: Renal Failure ? Acute ? Underlying chronic Diabetic Nephropathy- Anemia, chronic High Cholestrol Depression / Dementia brain MRI noted Plan: transfused lower rate of Hydration- DC Khan- PT OT Avoid Nephrotoxics- monitor BS and BP Kidney FLORENCIA- Impression: Negative for hydronephrosis 2D Echo- 65% Ej Fx Kayexelate for high K on admission discussed with son 01/18 Subjective ROS Limited/Unobtainable: No Constitutional: Reports: malaise Allergies: Coded Allergies: No Known Allergies (Unverified , 01/15/17) Objective Last 24 Hour Vital Signs Date Time Temp Pulse Resp B/P Pulse Ox O2 Delivery O2 Flow Rate FiO2 01/19/17 08:00 98.1 75 17 137/76 96 Room Air 75 01/19/17 07:55 72 01/19/17 06:04 74 134/72 01/19/17 04:30 98.2 79 20 144/74 94 Room Air 01/19/17 04:00 68 01/19/17 00:30 97.0 68 20 94 Room Air 01/19/17 00:00 70 01/18/17 21:43 77 141/72 01/18/17 20:00 97.9 75 28 98/50 95 Room Air 01/18/17 20:00 68 01/18/17 19:00 75 18 Room Air 21 01/18/17 16:00 98.2 69 18 134/67 94 Room Air 01/18/17 16:00 71 01/18/17 13:21 65 134/67 01/18/17 12:00 65 01/18/17 11:30 97.3 65 18 134/67 94 Room Air Intake and Output 01/18/17 01/19/17 19:00 07:00 Intake Total 900 ml 1000 ml Output Total 200 ml 700 ml Balance 700 ml 300 ml Intake Oral 200 ml IV Total 700 ml 1000 ml Output Urine Total 200 ml 700 ml # Bowel Movements 1 Laboratory Tests 01/19/17 05:40: White Blood Count 9.5, Red Blood Count 3.42L, Hemoglobin 10.1#L, Hematocrit 30.8 #L, Mean Corpuscular Volume 90, Mean Corpuscular Hemoglobin 29.5, Mean Corpuscular Hemoglobin Concent 32.9, Red Cell Distribution Width 14.5, Platelet Count 269, Mean Platelet Volume 5.0L, Neutrophils (%) (Auto) 71.2, Lymphocytes ( %) (Auto) 18.2L, Monocytes (%) (Auto) 7.2, Eosinophils (%) (Auto) 2.4, Basophils (%) (Auto) 0.9, Erythrocyte Sedimentation Rate 110H, Reticulocyte Count [Pending], Prothrombin Time 11.5, Prothromb Time International Ratio 1.1, Activated Partial Thromboplast Time 29, Sodium Level 146H, Potassium Level 4.1, Chloride Level 110H, Carbon Dioxide Level 19L, Anion Gap 17H, Blood Urea Nitrogen 30H, Creatinine 2.1H, Estimat Glomerular Filtration Rate , Glucose Level 102, Calcium Level 8.6, Iron Level 32L, Total Iron Binding Capacity 205L, Percent Iron Saturation 16, Unsaturated Iron Binding 173, Lactate Dehydrogenase 202, Carcinoembryonic Antigen 2.3, Vitamin B12 Level 528, Folate [Pending] Height (Feet): 5 Height (Inches): 4.00 Weight (Pounds): 160 General Appearance: no apparent distress, other - more responsive- Cardiovascular: regular rhythm Respiratory/Chest: decreased breath sounds Abdomen: soft Objective other PE not changed CHARLEY SARKAR Jan 19, 2017 10:21
[2017-01-19 12:00] VITALS: BP 137/55
--- NOTE | 2017-01-19 12:39 | Internal Med Progress Note ---
Subjective Date of Service: Jan 19, 2017 Physician Name Stone Galeas Attending Physician Dk Acevedo MD Current Medications Medications (Trade) Dose Ordered Sig/Leydi Route PRN Reason Start Time Stop Time Status Last Admin Dose Admin Acetaminophen (Tylenol) 650 mg Q4H PRN ORAL fever 01/15/17 23:15 02/14/17 23:14 Albuterol/ Ipratropium (DuoNeb 0.5-3(2.5)mg/3ml) 3 ml Q6HRT PRN HHN dyspnea 01/15/17 23:15 01/20/17 23:14 Atorvastatin Calcium (Lipitor) 40 mg QHS ORAL 01/16/17 21:00 02/15/17 20:59 01/18/17 21:42 Clonidine HCl (Catapres) 0.1 mg Q4H PRN ORAL For High Blood Pressure 01/15/17 23:15 02/14/17 23:14 Dextrose (Dextrose 50%) STAT PRN IV Hypoglycemia 01/15/17 23:15 02/14/17 23:14 Diltiazem HCl (Cardizem) 30 mg EVERY 8 HOURS ORAL 01/17/17 22:00 02/16/17 21:59 01/19/17 06:04 Escitalopram Oxalate (Lexapro) 10 mg DAILY ORAL 01/18/17 16:00 02/17/17 15:59 01/19/17 09:47 Heparin Sodium (Porcine) (Heparin 5000 units/ml) 5,000 units EVERY 12 HOURS SUBQ 01/16/17 09:00 02/15/17 08:59 01/19/17 09:48 Insulin Aspart (NovoLOG) BEFORE MEALS AND HS SUBQ 01/16/17 06:30 02/15/17 06:29 01/19/17 12:26 Morphine Sulfate (Morphine Sulfate) 1 mg EVERY 4 HOURS PRN IVP For Pain 01/15/17 23:15 01/22/17 23:14 Ondansetron HCl (Zofran) 4 mg Q6H PRN IVP Nausea & Vomiting 01/15/17 23:15 02/14/17 23:14 Polyethylene Glycol (Miralax) 17 gm HSPRN PRN ORAL Constipation 01/15/17 23:15 02/14/17 23:14 01/16/17 08:25 Sodium Chloride (Sodium Chloride 1000ml bag) 1,000 ml @ 50 mls/hr Q20H IV 01/20/17 10:30 02/19/17 10:29 01/19/17 11:00 Temazepam 15 mg 15 mg HSPRN PRN ORAL Insomnia 01/18/17 15:00 01/25/17 14:59 01/18/17 21:44 Allergies: Coded Allergies: No Known Allergies (Unverified , 01/15/17) ROS Limited/Unobtainable: No Constitutional: Reports: no symptoms HEENT: Reports: no symptoms Cardiovascular: Reports: no symptoms Respiratory: Reports: no symptoms Gastrointestinal/Abdominal: Reports: no symptoms Genitourinary: Reports: no symptoms Neurologic/Psychiatric: Reports: other - Dizzy Subjective 86 YO F admitted with vertigo and altered mental status. Found to be Hypoglycemic. Cover for Int Med-Dr Acevedo. Renal function improving. Objective Last Vital Signs Date Time Temp Pulse Resp B/P Pulse Ox O2 Delivery O2 Flow Rate FiO2 01/19/17 08:00 98.1 75 17 137/76 96 Room Air 75 01/18/17 19:00 21 01/16/17 04:30 2.0 Laboratory Tests Test 01/19/17 05:40 01/19/17 10:30 White Blood Count 9.5 K/UL (4.8-10.8) Red Blood Count 3.42 M/UL (4.20-5.40) L Hemoglobin 10.1 G/DL (12.0-16.0) #L Hematocrit 30.8 % (37.0-47.0) #L Mean Corpuscular Volume 90 FL (80-99) Mean Corpuscular Hemoglobin 29.5 PG (27.0-31.0) Mean Corpuscular Hemoglobin Concent 32.9 G/DL (32.0-36.0) Red Cell Distribution Width 14.5 % (11.6-14.8) Platelet Count 269 K/UL (150-450) Mean Platelet Volume 5.0 FL (6.5-10.1) L Neutrophils (%) (Auto) 71.2 % (45.0-75.0) Lymphocytes (%) (Auto) 18.2 % (20.0-45.0) L Monocytes (%) (Auto) 7.2 % (1.0-10.0) Eosinophils (%) (Auto) 2.4 % (0.0-3.0) Basophils (%) (Auto) 0.9 % (0.0-2.0) Neutrophils % (Manual) Pending Lymphocytes % (Manual) Pending Platelet Estimate Pending Platelet Morphology Pending Erythrocyte Sedimentation Rate 110 MM/HR (0-42) H Reticulocyte Count Pending Prothrombin Time 11.5 SEC (9.30-11.50) Prothromb Time International Ratio 1.1 (0.9-1.1) Activated Partial Thromboplast Time 29 SEC (23-33) Sodium Level 146 mEQ/L (135-145) H Potassium Level 4.1 mEQ/L (3.4-4.9) Chloride Level 110 mEQ/L (98-107) H Carbon Dioxide Level 19 mEQ/L (20-30) L Anion Gap 17 (5-15) H Blood Urea Nitrogen 30 mg/dL (7-23) H Creatinine 2.1 mg/dL (0.5-0.9) H Estimat Glomerular Filtration Rate mL/min (>60) Glucose Level 102 mg/dL (74-106) Calcium Level 8.6 mg/dL (8.6-10.2) Iron Level 32 ug/dL (37-145) L Total Iron Binding Capacity 205 ug/dL (250-400) L Percent Iron Saturation 16 % (15-50) Unsaturated Iron Binding 173 ug/dL (112-346) Lactate Dehydrogenase 202 U/L (135-230) Carcinoembryonic Antigen 2.3 ng/mL Vitamin B12 Level 528 pg/mL (211-946) Folate Pending Urine Eosinophils None seen Intake and Output 01/18/17 01/19/17 19:00 07:00 Intake Total 900 ml 1100 ml Output Total 200 ml 700 ml Balance 700 ml 400 ml Intake Oral 200 ml IV Total 700 ml 1100 ml Output Urine Total 200 ml 700 ml # Bowel Movements 1 Objective General Appearance: WD/WN, no apparent distress, alert EENT: PERRL/EOMI, normal ENT inspection, TMs normal Neck: non-tender, normal alignment, supple, normal inspection Cardiovascular: regular rhythm, no gallop/murmur, no JVD Respiratory/Chest: chest wall non-tender, lungs clear, normal breath sounds, no respiratory distress, no accessory muscle use Abdomen: normal bowel sounds, non tender, soft, no organomegaly, no mass Extremities: normal range of motion 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 (4) HTN (hypertension) Assessment & Plan: See cardiology note. Start cardizem and continue clonidine prn (5) Alzheimer's dementia (6) Major depression (7) Hypercholesteremia Assessment & Plan: cont lipitor (8) Hypoglycemia Assessment & Plan: Resolved on novolog sliding scale. (9) Renal failure Assessment & Plan: Improving; See nephrology note. (10) Anemia of renal disease Assessment & Plan: S/P transfusion 1 unit PRBC Status: progressing STONE GALEAS Jan 19, 2017 12:39
[2017-01-19 13:26] LABS: BAND NEUTROPHILS % (MANUAL) 0 % (0-8); BASOPHILS % (MANUAL) 0 % (0-2); EOSINOPHILS % (MANUAL) 4 % (0-3); LYMPHOCYTES % (MANUAL) 18 % (20-45); NEUTROPHILS % (MANUAL) 69 % (45-75); PLATELET ESTIMATE ADEQUATE; PLATELET MORPHOLOGY NORMAL; TOTAL CELLS COUNTED 100
[2017-01-19 13:29] LABS: PATH BLOOD SMEAR/OMC SENT TO PATHOLOGIST
--- NOTE | 2017-01-19 14:51 | Cardiac Electrophysiology PN ---
Assessment/Plan Assessment/Plan 1. Episodes of atrial tachycardia versus atrial fibrillation with rapid ventricular response.On Cardizem 30 mg tid. Echocardiogram showed normal left ventricular systolic function. Ruled out for myocardial infarction. 2. Hypertension. Continue Cardizem 30 mg 3 times a day. 3. Hyperlipidemia, on Lipitor. 4. Chronic kidney disease with creatinine of 2.5. 5. Altered mental status secondary to hypoglycemia. MRI of the brain was negative 6. Hyperkalemia due to renal failure. Resolved after Kayexalate. 7. Severe anemia, S/P 1 unit of PRBC DW RN and son at bedside. Subjective Subjective Alert and comfortable in NAD. Stool OB pending. Had one unit PRBC yesterday. at bedside.No chest pain or SOB Objective Last 24 Hour Vital Signs Date Time Temp Pulse Resp B/P Pulse Ox O2 Delivery O2 Flow Rate FiO2 01/19/17 14:29 76 137/55 01/19/17 12:00 97.9 73 18 137/55 97 Room Air 76 01/19/17 08:00 98.1 75 17 137/76 96 Room Air 75 01/19/17 07:55 72 01/19/17 06:04 74 134/72 01/19/17 04:30 98.2 79 20 144/74 94 Room Air 01/19/17 04:00 68 01/19/17 00:30 97.0 68 20 94 Room Air 01/19/17 00:00 70 01/18/17 21:43 77 141/72 01/18/17 20:00 97.9 75 28 98/50 95 Room Air 01/18/17 20:00 68 01/18/17 19:00 75 18 Room Air 21 01/18/17 16:00 98.2 69 18 134/67 94 Room Air 01/18/17 16:00 71 Intake and Output 01/18/17 01/19/17 19:00 07:00 Intake Total 900 ml 1100 ml Output Total 200 ml 700 ml Balance 700 ml 400 ml Intake Oral 200 ml IV Total 700 ml 1100 ml Output Urine Total 200 ml 700 ml # Bowel Movements 1 Laboratory Tests Test 01/19/17 05:40 01/19/17 10:30 01/19/17 13:10 White Blood Count 9.5 K/UL (4.8-10.8) Red Blood Count 3.42 M/UL (4.20-5.40) L Hemoglobin 10.1 G/DL (12.0-16.0) #L Hematocrit 30.8 % (37.0-47.0) #L Mean Corpuscular Volume 90 FL (80-99) Mean Corpuscular Hemoglobin 29.5 PG (27.0-31.0) Mean Corpuscular Hemoglobin Concent 32.9 G/DL (32.0-36.0) Red Cell Distribution Width 14.5 % (11.6-14.8) Platelet Count 269 K/UL (150-450) Mean Platelet Volume 5.0 FL (6.5-10.1) L Neutrophils (%) (Auto) 71.2 % (45.0-75.0) Lymphocytes (%) (Auto) 18.2 % (20.0-45.0) L Monocytes (%) (Auto) 7.2 % (1.0-10.0) Eosinophils (%) (Auto) 2.4 % (0.0-3.0) Basophils (%) (Auto) 0.9 % (0.0-2.0) Differential Total Cells Counted 100 Neutrophils % (Manual) 69 % (45-75) Lymphocytes % (Manual) 18 % (20-45) L Monocytes % (Manual) 9 % (1-10) Eosinophils % (Manual) 4 % (0-3) H Basophils % (Manual) 0 % (0-2) Band Neutrophils 0 % (0-8) Platelet Estimate Adequate Platelet Morphology Normal Red Blood Cell Morphology Normal Erythrocyte Sedimentation Rate 110 MM/HR (0-42) H Reticulocyte Count 1.0 % (0.0-2.0) Prothrombin Time 11.5 SEC (9.30-11.50) Prothromb Time International Ratio 1.1 (0.9-1.1) Activated Partial Thromboplast Time 29 SEC (23-33) Sodium Level 146 mEQ/L (135-145) H Potassium Level 4.1 mEQ/L (3.4-4.9) Chloride Level 110 mEQ/L (98-107) H Carbon Dioxide Level 19 mEQ/L (20-30) L Anion Gap 17 (5-15) H Blood Urea Nitrogen 30 mg/dL (7-23) H Creatinine 2.1 mg/dL (0.5-0.9) H Estimat Glomerular Filtration Rate mL/min (>60) Glucose Level 102 mg/dL (74-106) Calcium Level 8.6 mg/dL (8.6-10.2) Iron Level 32 ug/dL (37-145) L Total Iron Binding Capacity 205 ug/dL (250-400) L Percent Iron Saturation 16 % (15-50) Unsaturated Iron Binding 173 ug/dL (112-346) Lactate Dehydrogenase 202 U/L (135-230) Carcinoembryonic Antigen 2.3 ng/mL Vitamin B12 Level 528 pg/mL (211-946) Folate Pending Urine Eosinophils None seen Stool Occult Blood Positive (NEGATIVE) Objective HEAD AND NECK: Showed no JVD. LUNGS: Clear. CARDIOVASCULAR: Regular S1 and S2 with no gallop or murmur. ABDOMEN: Soft. EXTREMITIES: No pitting edema. BERONICA SINGH Jan 19, 2017 14:51
[2017-01-19 16:00] VITALS: BP 135/67
[2017-01-19 20:00] VITALS: BP 140/70
--- NOTE | 2017-01-19 21:07 | Pulmonology Progress Note ---
Assessment/Plan Assessment/Plan Assessment/Plan Assessment/Plan ASSESSMENT acute metabolic encephalopathy likely 2 to hypoglycemia -resolved episode of hypoglycemia DM acute renal failreu, possibly on chronic ( ? diabetic nephropathy) hyperkalemia anemia hx of HTN dementia tachybrady syndrome PLAN OF CARE Admit to tele Nephrology consult IVF monitor renal parameters, lytes ARF possibly precipitated by medications as well as dehydration check renal US continue Kayexalate need to be on tele until K stable, no peaked T wave on tele strip avoid nephrotoxic agents BS management with SS of insulin Subjective Allergies: Coded Allergies: No Known Allergies (Unverified , 01/15/17) Objective Last 24 Hour Vital Signs Date Time Temp Pulse Resp B/P Pulse Ox O2 Delivery O2 Flow Rate FiO2 01/19/17 20:00 97.0 71 18 140/70 95 Room Air 01/19/17 19:20 63 16 Room Air 21 01/19/17 16:00 98.1 70 19 135/67 94 Room Air 01/19/17 14:29 76 137/55 01/19/17 12:03 82 01/19/17 12:00 97.9 73 18 137/55 97 Room Air 76 01/19/17 08:00 98.1 75 17 137/76 96 Room Air 75 01/19/17 07:55 72 01/19/17 06:04 74 134/72 01/19/17 04:30 98.2 79 20 144/74 94 Room Air 01/19/17 04:00 68 01/19/17 00:30 97.0 68 20 94 Room Air 01/19/17 00:00 70 01/18/17 21:43 77 141/72 Intake and Output 01/18/17 01/19/17 19:00 07:00 Intake Total 900 ml 1100 ml Output Total 200 ml 700 ml Balance 700 ml 400 ml Intake Oral 200 ml IV Total 700 ml 1100 ml Output Urine Total 200 ml 700 ml # Bowel Movements 1 General Appearance: no acute distress HEENT: normocephalic, atraumatic, PERRL Respiratory/Chest: chest wall non-tender, decreased breath sounds, accessory muscle use Breasts: no masses Cardiovascular: normal peripheral pulses, normal rate, regular rhythm, no JVD Abdomen: normal bowel sounds, soft, non tender, no organomegaly, non distended Genitourinary: normal external genitalia Extremities: no cyanosis Skin: no rash, lesions 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 grossly normal, responsive, motor weakness, disoriented Laboratory Tests 01/19/17 05:40: White Blood Count 9.5, Red Blood Count 3.42L, Hemoglobin 10.1#L, Hematocrit 30.8 #L, Mean Corpuscular Volume 90, Mean Corpuscular Hemoglobin 29.5, Mean Corpuscular Hemoglobin Concent 32.9, Red Cell Distribution Width 14.5, Platelet Count 269, Mean Platelet Volume 5.0L, Neutrophils (%) (Auto) 71.2, Lymphocytes ( %) (Auto) 18.2L, Monocytes (%) (Auto) 7.2, Eosinophils (%) (Auto) 2.4, Basophils (%) (Auto) 0.9, Differential Total Cells Counted 100, Neutrophils % ( Manual) 69, Lymphocytes % (Manual) 18L, Monocytes % (Manual) 9, Eosinophils % ( Manual) 4H, Basophils % (Manual) 0, Band Neutrophils 0, Platelet Estimate Adequate, Platelet Morphology Normal, Red Blood Cell Morphology Normal, Erythrocyte Sedimentation Rate 110H, Reticulocyte Count 1.0, Prothrombin Time 11.5, Prothromb Time International Ratio 1.1, Activated Partial Thromboplast Time 29, Sodium Level 146H, Potassium Level 4.1, Chloride Level 110H, Carbon Dioxide Level 19L, Anion Gap 17H, Blood Urea Nitrogen 30H, Creatinine 2.1H, Estimat Glomerular Filtration Rate , Glucose Level 102, Calcium Level 8.6, Iron Level 32L, Total Iron Binding Capacity 205L, Percent Iron Saturation 16, Unsaturated Iron Binding 173, Lactate Dehydrogenase 202, Carcinoembryonic Antigen 2.3, Vitamin B12 Level 528, Folate [Pending] 01/19/17 10:30: Urine Eosinophils None seen 01/19/17 13:10: Stool Occult Blood Positive Current Medications Medications (Trade) Dose Ordered Sig/Leydi Route PRN Reason Start Time Stop Time Status Last Admin Dose Admin Acetaminophen (Tylenol) 650 mg Q4H PRN ORAL fever 01/15/17 23:15 02/14/17 23:14 Al Hydroxide/Mg Hydroxide (Mylanta) 50 ml Q6H PRN ORAL Abdominal cramps 01/19/17 13:00 02/18/17 12:59 Albuterol/ Ipratropium (DuoNeb 0.5-3(2.5)mg/3ml) 3 ml Q6HRT PRN HHN dyspnea 01/15/17 23:15 01/20/17 23:14 Atorvastatin Calcium (Lipitor) 40 mg QHS ORAL 01/16/17 21:00 02/15/17 20:59 01/18/17 21:42 Clonidine HCl (Catapres) 0.1 mg Q4H PRN ORAL For High Blood Pressure 01/15/17 23:15 02/14/17 23:14 Dextrose (Dextrose 50%) STAT PRN IV Hypoglycemia 01/15/17 23:15 02/14/17 23:14 Diltiazem HCl (Cardizem) 30 mg EVERY 8 HOURS ORAL 01/17/17 22:00 02/16/17 21:59 01/19/17 14:29 Escitalopram Oxalate (Lexapro) 10 mg DAILY ORAL 01/18/17 16:00 02/17/17 15:59 01/19/17 09:47 Heparin Sodium (Porcine) (Heparin 5000 units/ml) 5,000 units EVERY 12 HOURS SUBQ 01/16/17 09:00 02/15/17 08:59 01/19/17 09:48 Insulin Aspart (NovoLOG) BEFORE MEALS AND HS SUBQ 01/16/17 06:30 02/15/17 06:29 01/19/17 18:16 Morphine Sulfate (Morphine Sulfate) 1 mg EVERY 4 HOURS PRN IVP For Pain 01/15/17 23:15 01/22/17 23:14 Ondansetron HCl (Zofran) 4 mg Q6H PRN IVP Nausea & Vomiting 01/15/17 23:15 02/14/17 23:14 Polyethylene Glycol (Miralax) 17 gm HSPRN PRN ORAL Constipation 01/15/17 23:15 02/14/17 23:14 01/16/17 08:25 Sodium Chloride (Sodium Chloride 1000ml bag) 1,000 ml @ 50 mls/hr Q20H IV 01/20/17 10:30 02/19/17 10:29 01/19/17 11:00 Temazepam 15 mg 15 mg HSPRN PRN ORAL Insomnia 01/18/17 15:00 01/25/17 14:59 01/18/17 21:44 GERARDO CHIU Jan 19, 2017 21:07
[2017-01-19] MEDS ORDERED: Zolpidem 5mg tab ORAL PRN (22:30)
[2017-01-20 04:00] VITALS: BP 139/76
[2017-01-20] MEDS: NovoLOG Insulin Flexpen SUBQ SCH ×3 (06:29→16:50)
[2017-01-20 08:00] VITALS: BP 140/67
[2017-01-20 08:05] LABS: ANION GAP 18 (5-15); CALCIUM 8.2 mg/dL (8.6-10.2); CARBON DIOXIDE 18 mEQ/L (20-30); CHLORIDE 107 mEQ/L (98-107); CREATININE 1.9 mg/dL (0.5-0.9); HEMOLYSIS 31; SODIUM 143 mEQ/L (135-145)
[2017-01-20] MEDS: Heparin 5000 units/ml inj SUBQ SCH (09:02)
[2017-01-20 09:52] LABS: BASOPHILS % (AUTO) 0.9 % (0.0-2.0); EOSINOPHILS % (AUTO) 2.8 % (0.0-3.0); MEAN CORPUSCULAR HEMOGLOBIN 29.5 PG (27.0-31.0); MEAN CORPUSCULAR HGB CONC 31.9 G/DL (32.0-36.0); MEAN CORPUSCULAR VOLUME 92 FL (80-99); MONOCYTES % (AUTO) 8.2 % (1.0-10.0); NEUTROPHILS % (AUTO) 62.1 % (45.0-75.0); PLATELET COUNT 224 K/UL (150-450); RED BLOOD COUNT 3.13 M/UL (4.20-5.40); RED CELL DISTRIBUTION WIDTH 13.8 % (11.6-14.8); WHITE BLOOD COUNT 8.9 K/UL (4.8-10.8)
--- NOTE | 2017-01-20 11:02 | General Progress Note ---
Assessment/Plan Status: stable Status Narrative Cr lower 1.9 Assessment/Plan status: Renal Failure ? Acute ? Underlying chronic Diabetic Nephropathy- Anemia, chronic High Cholestrol Depression / Dementia brain MRI noted Plan: transfused lower rate of Hydration- DC Boyce- PT OT Avoid Nephrotoxics- monitor BS and BP Kidney FLORENCIA- Impression: Negative for hydronephrosis 2D Echo- 65% Ej Fx Kayexelate for high K on admission discussed with son 01/18 Subjective ROS Limited/Unobtainable: No Constitutional: Reports: malaise, weakness Allergies: Coded Allergies: No Known Allergies (Unverified , 01/15/17) Objective Last 24 Hour Vital Signs Date Time Temp Pulse Resp B/P Pulse Ox O2 Delivery O2 Flow Rate FiO2 01/20/17 08:00 97.2 69 18 140/67 95 Room Air 72 01/20/17 07:41 74 01/20/17 07:35 62 16 Room Air 21 01/20/17 06:29 63 139/76 01/20/17 04:00 98.9 63 21 139/76 96 Room Air 01/20/17 04:00 62 01/20/17 00:00 65 01/19/17 21:28 66 140/70 01/19/17 20:00 97.0 71 18 140/70 95 Room Air 01/19/17 20:00 73 01/19/17 19:20 63 16 Room Air 21 01/19/17 16:00 98.1 70 19 135/67 94 Room Air 01/19/17 16:00 61 01/19/17 14:29 76 137/55 01/19/17 12:03 82 01/19/17 12:00 97.9 73 18 137/55 97 Room Air 76 Intake and Output 01/19/17 01/20/17 19:00 07:00 Intake Total 1130 ml Output Total 200 ml Balance 930 ml Intake Oral 630 ml IV Total 500 ml Output Urine Total 200 ml # Voids 2 Laboratory Tests 01/19/17 13:10: Stool Occult Blood Positive 01/20/17 07:15: Sodium Level 143, Potassium Level 4.0, Chloride Level 107, Carbon Dioxide Level 18L, Anion Gap 18H, Blood Urea Nitrogen 25H, Creatinine 1.9H, Estimat Glomerular Filtration Rate , Glucose Level 82, Calcium Level 8.2L 01/20/17 09:00: White Blood Count 8.9, Red Blood Count 3.13L, Hemoglobin 9.2L, Hematocrit 28.9L , Mean Corpuscular Volume 92, Mean Corpuscular Hemoglobin 29.5, Mean Corpuscular Hemoglobin Concent 31.9L, Red Cell Distribution Width 13.8, Platelet Count 224, Mean Platelet Volume 5.0L, Neutrophils (%) (Auto) 62.1, Lymphocytes (%) (Auto) 26.0, Monocytes (%) (Auto) 8.2, Eosinophils (%) (Auto) 2.8, Basophils (%) (Auto) 0.9 Height (Feet): 5 Height (Inches): 4.00 Weight (Pounds): 160 General Appearance: no apparent distress, lethargic Cardiovascular: normal rate Respiratory/Chest: decreased breath sounds Abdomen: soft Genitourinary/Rectal: other - boyce out Objective other PE not changed CHARLEY SARKAR Jan 20, 2017 11:02
[2017-01-20 12:00] VITALS: BP 141/60
[2017-01-20 14:21] VITALS: BP 141/60
--- NOTE | 2017-01-20 14:53 | Discharge Summary ---
Discharge Summary Hospital Course Date of Admission Jan 15, 2017 at 21:50 Date of Discharge Admitting Diagnosis renal insufficiency hypoglycemia hyperkalemia TYRESE Pritchett is a 86 year old female who was admitted on Jan 15, 2017 at 21: 50 for Renal Insufficiency Hypoglycemia Hyperkalemia Hospital Course The patient was seen and examined at bedside and all new and available data was reviewed in the patients chart. Discuss with son over the phone with regard plan of care, Last 24 Hour Vital Signs Date Time Temp Pulse Resp B/P Pulse Ox O2 Delivery O2 Flow Rate FiO2 01/20/17 14:21 96.9 65 18 141/60 Room Air 73 01/20/17 13:51 65 141/60 01/20/17 12:00 96.9 56 18 141/60 98 Room Air 72 01/20/17 11:51 61 01/20/17 08:00 97.2 69 18 140/67 95 Room Air 72 01/20/17 07:41 74 01/20/17 07:35 62 16 Room Air 21 01/20/17 06:29 63 139/76 01/20/17 04:00 98.9 63 21 139/76 96 Room Air 01/20/17 04:00 62 01/20/17 00:00 65 01/19/17 21:28 66 140/70 01/19/17 20:00 97.0 71 18 140/70 95 Room Air 01/19/17 20:00 73 01/19/17 19:20 63 16 Room Air 21 01/19/17 16:00 98.1 70 19 135/67 94 Room Air 01/19/17 16:00 61 General Appearance: WD/WN, no apparent distress, alert, sitting up on chair EENT: PERRL/EOMI, normal ENT inspection, Neck: non-tender, normal alignment, supple. Cardiovascular: regular rhythm, no murmur, Respiratory/Chest: chest wall non-tender, lungs clear, normal breath sounds, no respiratory distress Abdomen: normal bowel sounds, non tender, soft, Extremities: normal range of motion, + 2 edema. 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 Skin: normal pigmentation, warm/dry Plan : Discharge home. (Patient was seen earlier today. Signature timestamp does not reflect patient encounter time) Dk Acevedo MD Discharge Discharge Disposition Patient was discharged to Discharge Diagnoses: Dk Acevedo MD Jan 20, 2017 14:53
--- NOTE | 2017-01-20 15:21 | Cardiac Electrophysiology PN ---
Assessment/Plan Assessment/Plan 1. Episodes of atrial tachycardia versus atrial fibrillation with rapid ventricular response.On Cardizem 30 mg tid. Echocardiogram showed normal left ventricular systolic function. Ruled out for myocardial infarction.Remained in SR. 2. Hypertension. Continue Cardizem 30 mg 3 times a day. 3. Hyperlipidemia, on Lipitor. 4. Chronic kidney disease with creatinine of 2.5. 5. Altered mental status secondary to hypoglycemia. MRI of the brain was negative 6. Hyperkalemia due to renal failure. Resolved after Kayexalate. 7. Severe anemia, S/P 1 unit of PRBC DW RN, dr Acevedo and at bedside. Subjective Subjective Alert and comfortable in NAD. Had one unit PRBC. at bedside.No chest pain or SOB. Awaiting discharge. Objective Last 24 Hour Vital Signs Date Time Temp Pulse Resp B/P Pulse Ox O2 Delivery O2 Flow Rate FiO2 01/20/17 14:21 96.9 65 18 141/60 Room Air 73 01/20/17 13:51 65 141/60 01/20/17 12:00 96.9 56 18 141/60 98 Room Air 72 01/20/17 11:51 61 01/20/17 08:00 97.2 69 18 140/67 95 Room Air 72 01/20/17 07:41 74 01/20/17 07:35 62 16 Room Air 21 01/20/17 06:29 63 139/76 01/20/17 04:00 98.9 63 21 139/76 96 Room Air 01/20/17 04:00 62 01/20/17 00:00 65 01/19/17 21:28 66 140/70 01/19/17 20:00 97.0 71 18 140/70 95 Room Air 01/19/17 20:00 73 01/19/17 19:20 63 16 Room Air 21 01/19/17 16:00 98.1 70 19 135/67 94 Room Air 01/19/17 16:00 61 Intake and Output 01/19/17 01/20/17 19:00 07:00 Intake Total 1130 ml 50 ml Output Total 200 ml Balance 930 ml 50 ml Intake Oral 630 ml IV Total 500 ml 50 ml Output Urine Total 200 ml # Voids 2 Laboratory Tests Test 01/20/17 07:15 01/20/17 09:00 Sodium Level 143 mEQ/L (135-145) Potassium Level 4.0 mEQ/L (3.4-4.9) Chloride Level 107 mEQ/L (98-107) Carbon Dioxide Level 18 mEQ/L (20-30) L Anion Gap 18 (5-15) H Blood Urea Nitrogen 25 mg/dL (7-23) H Creatinine 1.9 mg/dL (0.5-0.9) H Estimat Glomerular Filtration Rate mL/min (>60) Glucose Level 82 mg/dL (74-106) Calcium Level 8.2 mg/dL (8.6-10.2) L White Blood Count 8.9 K/UL (4.8-10.8) Red Blood Count 3.13 M/UL (4.20-5.40) L Hemoglobin 9.2 G/DL (12.0-16.0) L Hematocrit 28.9 % (37.0-47.0) L Mean Corpuscular Volume 92 FL (80-99) Mean Corpuscular Hemoglobin 29.5 PG (27.0-31.0) Mean Corpuscular Hemoglobin Concent 31.9 G/DL (32.0-36.0) L Red Cell Distribution Width 13.8 % (11.6-14.8) Platelet Count 224 K/UL (150-450) Mean Platelet Volume 5.0 FL (6.5-10.1) L Neutrophils (%) (Auto) 62.1 % (45.0-75.0) Lymphocytes (%) (Auto) 26.0 % (20.0-45.0) Monocytes (%) (Auto) 8.2 % (1.0-10.0) Eosinophils (%) (Auto) 2.8 % (0.0-3.0) Basophils (%) (Auto) 0.9 % (0.0-2.0) Objective HEAD AND NECK: Showed no JVD. LUNGS: Clear. CARDIOVASCULAR: Regular S1 and S2 with no gallop or murmur. ABDOMEN: Soft. EXTREMITIES: No pitting edema. BERONICA SINGH Jan 20, 2017 15:21
[2017-01-20 16:00] VITALS: BP 144/76
--- NOTE | 2017-01-20 16:15 | Internal Med Progress Note ---
Subjective Date of Service: Jan 20, 2017 Physician Name GaleasStone Attending Physician Dk Acevedo MD Current Medications Medications (Trade) Dose Ordered Sig/Leydi Route PRN Reason Start Time Stop Time Status Last Admin Dose Admin Acetaminophen (Tylenol) 650 mg Q4H PRN ORAL fever 01/15/17 23:15 02/14/17 23:14 Al Hydroxide/Mg Hydroxide (Mylanta) 50 ml Q6H PRN ORAL Abdominal cramps 01/19/17 13:00 02/18/17 12:59 Albuterol/ Ipratropium (DuoNeb 0.5-3(2.5)mg/3ml) 3 ml Q6HRT PRN HHN dyspnea 01/15/17 23:15 01/20/17 23:14 Atorvastatin Calcium (Lipitor) 40 mg QHS ORAL 01/16/17 21:00 02/15/17 20:59 01/19/17 21:27 Clonidine HCl (Catapres) 0.1 mg Q4H PRN ORAL For High Blood Pressure 01/15/17 23:15 02/14/17 23:14 Dextrose (Dextrose 50%) STAT PRN IV Hypoglycemia 01/15/17 23:15 02/14/17 23:14 Diltiazem HCl (Cardizem) 30 mg EVERY 8 HOURS ORAL 01/17/17 22:00 02/16/17 21:59 01/20/17 13:51 Escitalopram Oxalate (Lexapro) 10 mg DAILY ORAL 01/18/17 16:00 02/17/17 15:59 01/20/17 09:01 Heparin Sodium (Porcine) (Heparin 5000 units/ml) 5,000 units EVERY 12 HOURS SUBQ 01/16/17 09:00 02/15/17 08:59 01/20/17 09:02 Insulin Aspart (NovoLOG) BEFORE MEALS AND HS SUBQ 01/16/17 06:30 02/15/17 06:29 01/20/17 12:40 Morphine Sulfate (Morphine Sulfate) 1 mg EVERY 4 HOURS PRN IVP For Pain 01/15/17 23:15 01/22/17 23:14 Ondansetron HCl (Zofran) 4 mg Q6H PRN IVP Nausea & Vomiting 01/15/17 23:15 02/14/17 23:14 Polyethylene Glycol (Miralax) 17 gm HSPRN PRN ORAL Constipation 01/15/17 23:15 02/14/17 23:14 01/16/17 08:25 Sodium Chloride (Sodium Chloride 1000ml bag) 1,000 ml @ 50 mls/hr Q20H IV 01/20/17 10:30 02/19/17 10:29 01/19/17 11:00 Temazepam 15 mg 15 mg HSPRN PRN ORAL Insomnia 01/18/17 15:00 01/25/17 14:59 01/18/17 21:44 Zolpidem Tartrate (Ambien) 5 mg HSPRN PRN ORAL Insomnia 01/19/17 22:30 02/18/17 22:29 01/19/17 22:44 Allergies: Coded Allergies: No Known Allergies (Unverified , 01/15/17) ROS Limited/Unobtainable: No Constitutional: Reports: no symptoms HEENT: Reports: no symptoms Cardiovascular: Reports: no symptoms Respiratory: Reports: no symptoms Gastrointestinal/Abdominal: Reports: no symptoms Genitourinary: Reports: no symptoms Neurologic/Psychiatric: Reports: other - dizziness Subjective 86 YO F admitted with vertigo and altered mental status. Found to be Hypoglycemic. Cover for Int Med-Dr Acevedo. Renal function improving. Await discharge home today Objective Last Vital Signs Date Time Temp Pulse Resp B/P Pulse Ox O2 Delivery O2 Flow Rate FiO2 01/20/17 14:21 96.9 65 18 141/60 Room Air 73 01/20/17 12:00 98 01/20/17 07:35 21 01/16/17 04:30 2.0 Laboratory Tests Test 01/20/17 07:15 01/20/17 09:00 Sodium Level 143 mEQ/L (135-145) Potassium Level 4.0 mEQ/L (3.4-4.9) Chloride Level 107 mEQ/L (98-107) Carbon Dioxide Level 18 mEQ/L (20-30) L Anion Gap 18 (5-15) H Blood Urea Nitrogen 25 mg/dL (7-23) H Creatinine 1.9 mg/dL (0.5-0.9) H Estimat Glomerular Filtration Rate mL/min (>60) Glucose Level 82 mg/dL (74-106) Calcium Level 8.2 mg/dL (8.6-10.2) L White Blood Count 8.9 K/UL (4.8-10.8) Red Blood Count 3.13 M/UL (4.20-5.40) L Hemoglobin 9.2 G/DL (12.0-16.0) L Hematocrit 28.9 % (37.0-47.0) L Mean Corpuscular Volume 92 FL (80-99) Mean Corpuscular Hemoglobin 29.5 PG (27.0-31.0) Mean Corpuscular Hemoglobin Concent 31.9 G/DL (32.0-36.0) L Red Cell Distribution Width 13.8 % (11.6-14.8) Platelet Count 224 K/UL (150-450) Mean Platelet Volume 5.0 FL (6.5-10.1) L Neutrophils (%) (Auto) 62.1 % (45.0-75.0) Lymphocytes (%) (Auto) 26.0 % (20.0-45.0) Monocytes (%) (Auto) 8.2 % (1.0-10.0) Eosinophils (%) (Auto) 2.8 % (0.0-3.0) Basophils (%) (Auto) 0.9 % (0.0-2.0) Intake and Output 01/19/17 01/20/17 19:00 07:00 Intake Total 1130 ml 50 ml Output Total 200 ml Balance 930 ml 50 ml Intake Oral 630 ml IV Total 500 ml 50 ml Output Urine Total 200 ml # Voids 2 Objective General Appearance: WD/WN, no apparent distress, alert EENT: PERRL/EOMI, normal ENT inspection, TMs normal Neck: non-tender, normal alignment, supple, normal inspection Cardiovascular: regular rhythm, no gallop/murmur, no JVD Respiratory/Chest: chest wall non-tender, lungs clear, normal breath sounds, no respiratory distress, no accessory muscle use Abdomen: normal bowel sounds, non tender, soft, no organomegaly, no mass Extremities: normal range of motion 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 (4) HTN (hypertension) Assessment & Plan: See cardiology note. Start cardizem and continue clonidine prn (5) Alzheimer's dementia (6) Major depression (7) Hypercholesteremia Assessment & Plan: cont lipitor (8) Hypoglycemia Assessment & Plan: Resolved on novolog sliding scale. (9) Renal failure Assessment & Plan: Improving; See nephrology note. (10) Anemia of renal disease Assessment & Plan: S/P transfusion 1 unit PRBC Status: stable Assessment/Plan Discharge home today with [facility] STONE GALEAS Jan 20, 2017 16:15
--- NOTE | 2017-01-20 16:27 | Pulmonology Progress Note ---
Assessment/Plan Assessment/Plan Assessment/Plan Assessment/Plan ASSESSMENT acute metabolic encephalopathy likely 2 to hypoglycemia -resolved episode of hypoglycemia DM acute renal failreu, possibly on chronic ( ? diabetic nephropathy) hyperkalemia anemia hx of HTN dementia tachybrady syndrome PLAN OF CARE Admit to tele Nephrology consult IVF monitor renal parameters, lytes ARF possibly precipitated by medications as well as dehydration check renal US continue Kayexalate need to be on tele until K stable, no peaked T wave on tele strip avoid nephrotoxic agents BS management with SS of insulin Subjective ROS Limited/Unobtainable: Yes Constitutional: Reports: anorexia, fatigue Neurologic: Reports: confusion, weakness Allergies: Coded Allergies: No Known Allergies (Unverified , 01/15/17) Objective Last 24 Hour Vital Signs Date Time Temp Pulse Resp B/P Pulse Ox O2 Delivery O2 Flow Rate FiO2 01/20/17 14:21 96.9 65 18 141/60 Room Air 73 01/20/17 13:51 65 141/60 01/20/17 12:00 96.9 56 18 141/60 98 Room Air 72 01/20/17 11:51 61 01/20/17 08:00 97.2 69 18 140/67 95 Room Air 72 01/20/17 07:41 74 01/20/17 07:35 62 16 Room Air 21 01/20/17 06:29 63 139/76 01/20/17 04:00 98.9 63 21 139/76 96 Room Air 01/20/17 04:00 62 01/20/17 00:00 65 01/19/17 21:28 66 140/70 01/19/17 20:00 97.0 71 18 140/70 95 Room Air 01/19/17 20:00 73 01/19/17 19:20 63 16 Room Air 21 Intake and Output 01/19/17 01/20/17 19:00 07:00 Intake Total 1130 ml 50 ml Output Total 200 ml Balance 930 ml 50 ml Intake Oral 630 ml IV Total 500 ml 50 ml Output Urine Total 200 ml # Voids 2 General Appearance: no acute distress HEENT: normocephalic, atraumatic, anicteric, PERRL Respiratory/Chest: chest wall non-tender, decreased breath sounds, accessory muscle use Breasts: no masses Cardiovascular: normal peripheral pulses, normal rate, regular rhythm, no JVD Abdomen: normal bowel sounds, soft, non tender, no organomegaly, non distended Extremities: no cyanosis Skin: rash, lesions 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1, Lymphocytes (%) (Auto) 26.0, Monocytes (%) (Auto) 8.2, Eosinophils (%) (Auto) 2.8, Basophils (%) (Auto) 0.9 Current Medications Medications (Trade) Dose Ordered Sig/Leydi Route PRN Reason Start Time Stop Time Status Last Admin Dose Admin Acetaminophen (Tylenol) 650 mg Q4H PRN ORAL fever 01/15/17 23:15 02/14/17 23:14 Al Hydroxide/Mg Hydroxide (Mylanta) 50 ml Q6H PRN ORAL Abdominal cramps 01/19/17 13:00 02/18/17 12:59 Albuterol/ Ipratropium (DuoNeb 0.5-3(2.5)mg/3ml) 3 ml Q6HRT PRN HHN dyspnea 01/15/17 23:15 01/20/17 23:14 Atorvastatin Calcium (Lipitor) 40 mg QHS ORAL 01/16/17 21:00 02/15/17 20:59 01/19/17 21:27 Clonidine HCl (Catapres) 0.1 mg Q4H PRN ORAL For High Blood Pressure 01/15/17 23:15 02/14/17 23:14 Dextrose (Dextrose 50%) STAT PRN IV Hypoglycemia 01/15/17 23:15 02/14/17 23:14 Diltiazem HCl (Cardizem) 30 mg EVERY 8 HOURS ORAL 01/17/17 22:00 02/16/17 21:59 01/20/17 13:51 Escitalopram Oxalate (Lexapro) 10 mg DAILY ORAL 01/18/17 16:00 02/17/17 15:59 01/20/17 09:01 Heparin Sodium (Porcine) (Heparin 5000 units/ml) 5,000 units EVERY 12 HOURS SUBQ 01/16/17 09:00 02/15/17 08:59 01/20/17 09:02 Insulin Aspart (NovoLOG) BEFORE MEALS AND HS SUBQ 01/16/17 06:30 02/15/17 06:29 01/20/17 12:40 Morphine Sulfate (Morphine Sulfate) 1 mg EVERY 4 HOURS PRN IVP For Pain 01/15/17 23:15 01/22/17 23:14 Ondansetron HCl (Zofran) 4 mg Q6H PRN IVP Nausea & Vomiting 01/15/17 23:15 02/14/17 23:14 Polyethylene Glycol (Miralax) 17 gm HSPRN PRN ORAL Constipation 01/15/17 23:15 02/14/17 23:14 01/16/17 08:25 Sodium Chloride (Sodium Chloride 1000ml bag) 1,000 ml @ 50 mls/hr Q20H IV 01/20/17 10:30 02/19/17 10:29 01/19/17 11:00 Temazepam 15 mg 15 mg HSPRN PRN ORAL Insomnia 01/18/17 15:00 01/25/17 14:59 01/18/17 21:44 Zolpidem Tartrate (Ambien) 5 mg HSPRN PRN ORAL Insomnia 01/19/17 22:30 02/18/17 22:29 01/19/17 22:44 GERARDO CHIU Jan 20, 2017 16:26
--- NOTE | 2017-01-21 13:38 | Discharge Summary ---
Discharge Summary Hospital Course Date of Admission Jan 15, 2017 at 21:50 Date of Discharge Jan 20, 2017 at 16:55 Admitting Diagnosis renal insufficiency hypoglycemia hyperkalemia TYRESE Pritchett is a 86 year old female who was admitted on Jan 15, 2017 at 21: 50 for Renal Insufficiency Hypoglycemia Hyperkalemia Hospital Course [id number] Discharge Discharge Disposition Patient was discharged to Home with Home Health(06) Discharge Diagnoses: Татьяна Topete NP Jan 21, 2017 13:38
[2017-01-21 14:07] LABS: OTHERS PATHOLOGIST COMMENT
--- NOTE | 2017-01-22 01:48 | Discharge Summary 2 SIG ---
DATE OF ADMISSION: 01/15/2017 DATE OF DISCHARGE: 01/20/2017 ADDENDUM FINAL DIAGNOSES: 1. Diabetes mellitus. 2. Anemia of kidney disease. 3. Acute anemia status post transfusion. 4. Acute on chronic renal failure with underlying chronic kidney disease. 5. Hypercholesterolemia. 6. Hypoglycemia. 7. Depression. 8. Altered mental status/acute metabolic encephalopathy. 9. Episodes of atrial tachycardia. 10. Atrial fibrillation with rapid ventricular response. 11. Hypertension. 12. Hyperkalemia. Dk Acevedo M.D. I have been assigned to dictate discharge summary on this account and I was not involved in the patient's management. Татьяна Topete N.P. DR: BRANDI JOB#: [id number] CC:
--- NOTE | 2017-02-02 09:41 | Diagnostic Imaging Report ---
APPROVED REPORT CPT Code: 72218 Vascular Symptoms Dizziness and Vertigo Doppler Spectral Velocity Analysis RightLeft arteries. The Doppler spectral flow analysis indicates the degree of stenosis is minimal in the common, internal and external carotid arteries. VERTEBRAL - The vertebral artery is patent, without evidence of stenosis or steal. artery. The Doppler spectral flow analysis indicates the degree of stenosis is minimal (10%) in the common carotid artery, mild (20%) in the internal carotid artery, and moderate (50% - 60%) in the external carotid artery. VERTEBRAL- The vertebral artery is patent, without evidence of stenosis or steal.
== END 2017-01-20 16:55 | disposition home health service (06) | DRG 637 ==
LOC: EDBD 21:02 → EMR 21:48 → 2E 21:50 → EEVIPCON 21:50 → EDBEDREQ 22:15 → EDBEDREQSVC 22:15 → EDBEDREQ 01-16 00:52
PROC: 30233N1 Transfusion of Nonautologous Red Blood Cells into Peripheral Vein, Percutaneous Approach (ICD-10-PCS; principal; 2017-01-18)
DX: E11.649 Type 2 diabetes mellitus with hypoglycemia without coma (principal); G93.41 Metabolic encephalopathy; N17.9 Acute kidney failure, unspecified; G30.9 Alzheimer's disease, unspecified; D63.1 Anemia in chronic kidney disease; E78.5 Hyperlipidemia, unspecified; I12.9 Hypertensive chronic kidney disease with stage 1 through stage 4 chronic kidney disease, or unspecified chronic kidney disease; N18.9 Chronic kidney disease, unspecified; E87.5 Hyperkalemia; I49.5 Sick sinus syndrome; F02.80 Dementia in other diseases classified elsewhere, unspecified severity, without behavioral disturbance, psychotic disturbance, mood disturbance, and anxiety; F32.9 Major depressive disorder, single episode, unspecified; E78.00 Pure hypercholesterolemia, unspecified; I48.91 Unspecified atrial fibrillation; E11.21 Type 2 diabetes mellitus with diabetic nephropathy; R42 Dizziness and giddiness
CPT/HCPCS: 36415; 70551; 71010; 76775; 80048; 80053; 80061; 81003; 82270; 82378; 82550; 82553; 82607; 82746; 82962; 82977; 83036; 83540; 83550; 83605; 83615; 83735; 83880; 84100; 84300; 84443; 84484; 84550; 85007; 85025; 85044; 85060; 85610; 85651; 85730; 86140; 86850; 86900; 86901; 86920; 87040; 89050; 90732; 93306; 93880; 94664; J1815